=== PATIENT | male | born 1945 | race Caucasian/White ===

== ENCOUNTER 2016-08-31 10:03 | Outpatient (CLI) | payer MEDICARE, OTHER | END 2016-08-31 10:04 | disposition home or self-care (01) | DX: E11.9 Type 2 diabetes mellitus without complications (principal); I25.10 Atherosclerotic heart disease of native coronary artery without angina pectoris; N52.9 Male erectile dysfunction, unspecified; Z12.5 Encounter for screening for malignant neoplasm of prostate | CPT/HCPCS: 36415; 80053; 84403; 84439; 84443; 84481; G0103 ==

== ENCOUNTER 2016-09-15 09:09 | Outpatient (CLI) | payer MEDICARE, OTHER | END 2016-09-15 09:10 | disposition home or self-care (01) | DX: E29.1 Testicular hypofunction (principal); G47.30 Sleep apnea, unspecified; E11.40 Type 2 diabetes mellitus with diabetic neuropathy, unspecified; E78.5 Hyperlipidemia, unspecified; I10 Essential (primary) hypertension ==

== ENCOUNTER 2016-09-23 13:40 | Outpatient (CLI) | payer MEDICARE, OTHER | END 2016-09-23 13:41 | disposition home or self-care (01) | DX: I63.9 Cerebral infarction, unspecified (principal); D64.9 Anemia, unspecified ==

== ENCOUNTER 2016-11-05 08:00 | Outpatient (CLI) | payer MEDICARE, OTHER ==
[2016-11-05 19:08] LABS: HCT - HEMATOCRIT 40.5 % (42.0-52.0); HGB - HEMOGLOBIN 12.7 g/dL (14.0-18.0); MEAN CORPUSCULAR HEMOGLOBIN 24.9 pg (27.0-31.0); MEAN CORPUSCULAR HGB CONC 31.5 g/dL (32.0-36.0); MEAN CORPUSCULAR VOLUME 79.1 fL (80.0-94.0); RED BLOOD COUNT 5.12 10^6/uL (4.70-6.10); RED CELL DISTRIBUTION WIDTH 16.3 % (12.0-15.0); WHITE BLOOD COUNT 7.9 x10^3/uL (4.8-10.8)
[2016-11-05 20:22] LABS: HEMOGLOBIN A1C 0.98 g/dL
[2016-11-05 21:08] LABS: CREATININE 1.5 mg/dL (0.6-1.2); PHOSPHORUS 2.9 mg/dL (2.5-4.6); POTASSIUM 4.1 mmol/L (3.5-5.0); URIC ACID 5.4 mg/dL (2.6-7.2)
[2016-11-05 22:24] LABS: CALCIUM 8.9 mg/dL (8.5-10.3)
== END 2016-11-05 08:01 | disposition home or self-care (01) ==
LOC: LAB.WCP 08:00
PROVIDERS: ATTEND Internal Medicine Nephrology
DX: I12.9 Hypertensive chronic kidney disease with stage 1 through stage 4 chronic kidney disease, or unspecified chronic kidney disease (principal); N18.3 Chronic kidney disease, stage 3 (moderate); D63.1 Anemia in chronic kidney disease
CPT/HCPCS: 36415; 80069; 82043; 82306; 82570; 83036; 83540; 83970; 84466; 84550

== ENCOUNTER 2017-03-14 08:46 | Outpatient (CLI) | payer MEDICARE, OTHER | END 2017-03-14 08:47 | disposition home or self-care (01) | LOC: SC 08:46 | PROVIDERS: ATTEND Nurse Practitioner Family | DX: G47.33 Obstructive sleep apnea (adult) (pediatric) (principal) | CPT/HCPCS: 99214; G0463; 99212 ==

== ENCOUNTER 2017-04-01 14:17 | Outpatient (CLI) | payer MEDICARE, OTHER ==
[2017-04-01 19:21] LABS: HCT - HEMATOCRIT 40.5 % (42.0-52.0); HGB - HEMOGLOBIN 12.9 g/dL (14.0-18.0); MEAN CORPUSCULAR HEMOGLOBIN 24.9 pg (27.0-31.0); MEAN CORPUSCULAR HGB CONC 31.7 g/dL (32.0-36.0); MEAN CORPUSCULAR VOLUME 78.4 fL (80.0-94.0); MEAN PLATELET VOLUME 9.4 fL (7.4-11.4); RED BLOOD COUNT 5.17 10^6/uL (4.70-6.10); RED CELL DISTRIBUTION WIDTH 18.3 % (12.0-15.0); WHITE BLOOD COUNT 13.1 x10^3/uL (4.8-10.8)
[2017-04-01 19:43] LABS: HEMOGLOBIN A1C 0.8 g/dL
[2017-04-01 19:46] LABS: CALCIUM 9.2 mg/dL (8.5-10.3); CREATININE 1.5 mg/dL (0.6-1.2); PHOSPHORUS 3.1 mg/dL (2.5-4.6); POTASSIUM 4.1 mmol/L (3.5-5.0); URIC ACID 5.9 mg/dL (2.6-7.2)
== END 2017-04-01 14:18 | disposition home or self-care (01) ==
LOC: LAB.WCP 14:17
PROVIDERS: ATTEND Internal Medicine Nephrology
DX: I12.9 Hypertensive chronic kidney disease with stage 1 through stage 4 chronic kidney disease, or unspecified chronic kidney disease (principal); N18.3 Chronic kidney disease, stage 3 (moderate); E11.29 Type 2 diabetes mellitus with other diabetic kidney complication; R80.9 Proteinuria, unspecified; D63.1 Anemia in chronic kidney disease
CPT/HCPCS: 36415; 80069; 82043; 82570; 83036; 83540; 83970; 84466; 84550

== ENCOUNTER 2017-05-05 08:51 | Outpatient (CLI) | payer MEDICARE, OTHER | END 2017-05-05 08:52 | disposition home or self-care (01) | LOC: SC 08:51 | PROVIDERS: ATTEND Nurse Practitioner Family | DX: G47.31 Primary central sleep apnea (principal) | CPT/HCPCS: 99214; G0463; 99212 ==

== ENCOUNTER 2017-05-26 11:20 | Outpatient (CLI) | payer MEDICARE, OTHER ==
[2017-05-26 20:44] LABS: CHOL/HDL RATIO 3.2 (<5.0); CHOLESTEROL 122 mg/dL; HDL CHOLESTEROL 38 mg/dL; LDL/HDL RATIO 1.3 (<3.6); TRIGLYCERIDES 166 mg/dL; VLDL CHOLESTEROL 33 mg/dL
== END 2017-05-26 11:21 | disposition home or self-care (01) ==
LOC: LAB.WCP 11:20
PROVIDERS: ATTEND Internal Medicine Endocrinology, Diabetes & Metabolism
DX: E29.1 Testicular hypofunction (principal); E78.5 Hyperlipidemia, unspecified
CPT/HCPCS: 36415; 80061; 84403

== ENCOUNTER 2017-06-08 09:45 | Outpatient (CLI) | payer MEDICARE, OTHER | END 2017-06-08 09:46 | disposition home or self-care (01) | LOC: SC 09:45 | PROVIDERS: ATTEND Nurse Practitioner Family | DX: G47.33 Obstructive sleep apnea (adult) (pediatric) (principal) | CPT/HCPCS: 99214; G0463; 99212 ==

== ENCOUNTER 2017-06-29 08:00 | Outpatient (CLI) | payer MEDICARE, OTHER ==
[2017-06-29 19:33] LABS: HGB - HEMOGLOBIN 14.5 g/dL (14.0-18.0); MEAN CORPUSCULAR HEMOGLOBIN 26.8 pg (27.0-31.0); MEAN CORPUSCULAR HGB CONC 32.3 g/dL (32.0-36.0); RED BLOOD COUNT 5.42 10^6/uL (4.70-6.10); WHITE BLOOD COUNT 11.5 x10^3/uL (4.8-10.8)
[2017-06-29 19:43] LABS: ALBUMIN 3.8 g/dL (3.2-5.5); CALCIUM 8.6 mg/dL (8.5-10.3); CREATININE 1.7 mg/dL (0.6-1.2); PHOSPHORUS 3.2 mg/dL (2.5-4.6); URIC ACID 4.2 mg/dL (2.6-7.2)
[2017-06-29 20:11] LABS: HB2 TOTAL 15.7 g/dL; HEMOGLOBIN A1C 1.18 g/dL
[2017-06-29 20:24] LABS: MICROALBUM/CREATININE RATIO,UR 790.3 ug/mg (<30.0); MICROALBUMIN,URINE 114.6 mg/dL (0-300.0)
[2017-07-01 16:28] LABS: ALBUMIN 3.6 g/dL (3.8-4.8); ALPHA 1 GLOBULIN 0.3 g/dL (0.2-0.3); ALPHA 2 GLOBULIN 0.7 g/dL (0.5-0.9); BETA 1 GLOBULIN 0.4 g/dL (0.4-0.6); BETA 2 GLOBULIN 0.4 g/dL (0.2-0.5); GAMMA GLOBULIN 0.9 g/dL (0.8-1.7)
== END 2017-06-29 08:01 | disposition home or self-care (01) ==
LOC: LAB.WCP 08:00
PROVIDERS: ATTEND Internal Medicine Nephrology
DX: I12.9 Hypertensive chronic kidney disease with stage 1 through stage 4 chronic kidney disease, or unspecified chronic kidney disease (principal); N18.3 Chronic kidney disease, stage 3 (moderate); E11.29 Type 2 diabetes mellitus with other diabetic kidney complication; R80.9 Proteinuria, unspecified; D63.1 Anemia in chronic kidney disease; E11.40 Type 2 diabetes mellitus with diabetic neuropathy, unspecified; E78.5 Hyperlipidemia, unspecified
CPT/HCPCS: 36415; 80069; 82043; 82570; 83036; 83540; 83970; 84155; 84165; 84466; 84550

== ENCOUNTER 2017-07-14 10:17 | Outpatient (CLI) | payer MEDICARE, OTHER | END 2017-07-14 10:18 | disposition home or self-care (01) | LOC: SC 10:17 | PROVIDERS: ATTEND Nurse Practitioner Family | DX: G47.33 Obstructive sleep apnea (adult) (pediatric) (principal); G47.31 Primary central sleep apnea | CPT/HCPCS: 99214; G0463; 99212 ==

== ENCOUNTER 2017-10-17 08:00 | Outpatient (CLI) | payer MEDICARE, OTHER ==
[2017-10-17 13:20] LABS: HGB - HEMOGLOBIN 13.1 g/dL (14.0-18.0); MEAN CORPUSCULAR HEMOGLOBIN 27.1 pg (27.0-31.0); MEAN CORPUSCULAR HGB CONC 33.3 g/dL (32.0-36.0); MEAN CORPUSCULAR VOLUME 81.3 fL (80.0-94.0); MEAN PLATELET VOLUME 9.3 fL (7.4-11.4); RED BLOOD COUNT 4.83 10^6/uL (4.70-6.10); RED CELL DISTRIBUTION WIDTH 15.8 % (12.0-15.0); WHITE BLOOD COUNT 7.2 x10^3/uL (4.8-10.8)
[2017-10-17 13:36] LABS: ALBUMIN 3.4 g/dL (3.2-5.5); CALCIUM 8.9 mg/dL (8.5-10.3); CREATININE 1.4 mg/dL (0.6-1.2); PHOSPHORUS 2.7 mg/dL (2.5-4.6); URIC ACID 5.8 mg/dL (2.6-7.2)
== END 2017-10-17 23:59 ==
LOC: LAB.WCP 08:00
PROVIDERS: ATTEND Internal Medicine Nephrology
DX: N18.3 Chronic kidney disease, stage 3 (moderate) (principal); E11.22 Type 2 diabetes mellitus with diabetic chronic kidney disease; I12.9 Hypertensive chronic kidney disease with stage 1 through stage 4 chronic kidney disease, or unspecified chronic kidney disease; D63.1 Anemia in chronic kidney disease; R80.9 Proteinuria, unspecified
CPT/HCPCS: 36415; 80069; 82570; 83540; 83970; 84156; 84466; 84550

== ENCOUNTER 2018-01-02 13:50 | Outpatient (CLI) | payer MEDICARE, OTHER ==
[2018-01-02 18:58] LABS: ALBUMIN 3.6 g/dL (3.2-5.5); CALCIUM 9.4 mg/dL (8.5-10.3); CREATININE 1.7 mg/dL (0.6-1.2); PHOSPHORUS 4.1 mg/dL (2.5-4.6)
== END 2018-01-02 13:51 | disposition home or self-care (01) ==
LOC: LAB.WCP 13:50
PROVIDERS: ATTEND Internal Medicine Nephrology
DX: I12.9 Hypertensive chronic kidney disease with stage 1 through stage 4 chronic kidney disease, or unspecified chronic kidney disease (principal); N18.3 Chronic kidney disease, stage 3 (moderate); E11.22 Type 2 diabetes mellitus with diabetic chronic kidney disease; R80.9 Proteinuria, unspecified; N25.81 Secondary hyperparathyroidism of renal origin
CPT/HCPCS: 36415; 80069

== ENCOUNTER 2018-03-02 08:00 | Outpatient (CLI) | payer MEDICARE, OTHER ==
[2018-03-02 19:27] LABS: HGB - HEMOGLOBIN 13.3 g/dL (14.0-18.0); MEAN CORPUSCULAR HEMOGLOBIN 26.3 pg (27.0-31.0); MEAN CORPUSCULAR VOLUME 82.2 fL (80.0-94.0); MEAN PLATELET VOLUME 10.1 fL (7.4-11.4); RED BLOOD COUNT 5.05 10^6/uL (4.70-6.10); RED CELL DISTRIBUTION WIDTH 16.5 % (12.0-15.0); WHITE BLOOD COUNT 8.8 x10^3/uL (4.8-10.8)
[2018-03-02 20:08] LABS: ALBUMIN 3.6 g/dL (3.2-5.5); CALCIUM 9.1 mg/dL (8.5-10.3); CREATININE 2.2 mg/dL (0.6-1.2); PHOSPHORUS 3.4 mg/dL (2.5-4.6); URIC ACID 6.3 mg/dL (2.6-7.2)
[2018-03-02 20:16] LABS: CREATININE,URINE 129.7 mg/dL; MICROALBUM/CREATININE RATIO,UR 369.3 ug/mg (<30.0); MICROALBUMIN,URINE 47.9 mg/dL (0-300.0)
[2018-03-06 20:56] LABS: ALBUMIN 3.7 g/dL (3.8-4.8); ALPHA 1 GLOBULIN 0.3 g/dL (0.2-0.3); ALPHA 2 GLOBULIN 0.8 g/dL (0.5-0.9); BETA 1 GLOBULIN 0.5 g/dL (0.4-0.6); BETA 2 GLOBULIN 0.3 g/dL (0.2-0.5); GAMMA GLOBULIN 0.9 g/dL (0.8-1.7)
== END 2018-03-02 08:01 | disposition home or self-care (01) ==
LOC: LAB.WCP 08:00
PROVIDERS: ATTEND Internal Medicine Nephrology
DX: N18.3 Chronic kidney disease, stage 3 (moderate) (principal); E11.22 Type 2 diabetes mellitus with diabetic chronic kidney disease; I12.9 Hypertensive chronic kidney disease with stage 1 through stage 4 chronic kidney disease, or unspecified chronic kidney disease; R80.9 Proteinuria, unspecified; N25.81 Secondary hyperparathyroidism of renal origin
CPT/HCPCS: 36415; 80069; 82043; 82570; 83540; 83970; 84155; 84165; 84466; 84550; 85027

== ENCOUNTER 2018-03-02 20:53 | Outpatient (CLI) | payer MEDICARE, OTHER ==
--- NOTE | 2018-03-03 12:35 | XRAY Report ---
Reason: LEFT FOOT PAIN Procedure Date: 03/02/2018 Accession Number: [id number] / [id number] Procedure: XR - Foot 2 View LT CPT Code: FULL RESULT: EXAM: LEFT FOOT RADIOGRAPHY EXAM DATE: 03/02/2018 09:07 PM. CLINICAL HISTORY: LEFT FOOT PAIN. COMPARISON: None. TECHNIQUE: 2 Views. FINDINGS: Bones: No fractures or bone lesions. Joints: No subluxations. Soft Tissues: Vascular calcification present. No soft tissue swelling. IMPRESSION: Negative two-view left foot radiography. [facility]
== END 2018-03-02 20:54 | disposition home or self-care (01) ==
LOC: DI 20:53
PROVIDERS: ATTEND Family Medicine
DX: M79.672 Pain in left foot (principal); E11.22 Type 2 diabetes mellitus with diabetic chronic kidney disease; I12.9 Hypertensive chronic kidney disease with stage 1 through stage 4 chronic kidney disease, or unspecified chronic kidney disease; N18.3 Chronic kidney disease, stage 3 (moderate); R80.9 Proteinuria, unspecified; N25.81 Secondary hyperparathyroidism of renal origin
CPT/HCPCS: 36415; 80069; 82043; 82570; 83540; 83970; 84155; 84165; 84466; 84550; 85027

== ENCOUNTER 2018-05-13 09:04 | Outpatient (CLI) | payer MEDICARE, OTHER ==
--- NOTE | 2018-05-15 09:18 | MRI Report ---
Reason: ALLERGIC RHINITIS, FOOT PAIN, LEFT Procedure Date: 05/13/2018 Accession Number: [id number] / [id number] Procedure: MRI - Foot LT W/O CPT Code: FULL RESULT: EXAM: LEFT MIDFOOT MRI WITHOUT CONTRAST EXAM DATE: 05/13/2018 09:57 AM. CLINICAL HISTORY: Left foot pain around fifth metatarsophalangeal joint. COMPARISON: Left foot 2 views 03/02/2018. TECHNIQUE: Multiplanar, multisequence T1-weighted and fluid-sensitive sequences of the midfoot without contrast. Other: None. FINDINGS: Bones: No marrow edema. No visible fracture. Articular Cartilage: Mild thinning of the hyaline cartilage of the first MTPJ with osteophyte formation consistent with mild osteoarthritis. Ligaments: The visualized intertarsal, intermetatarsal, and tarsometatarsal ligaments are intact. This includes the Lisfranc ligament. The visualized collateral ligaments are intact. Tendons: The flexor and extensor tendons are unremarkable. Musculature: No edema or fatty atrophy. Other: No effusions. The visualized portion of the tarsal tunnel is unremarkable. No intermetatarsal bursitis. There is increased T2 signal over the medial aspect of the head of the first metatarsal. The findings are suggestive of a ganglion cyst associated with the first MTPJ. The differential diagnosis includes intermetatarsal bursitis which is considered less likely. No significant abnormality surrounding the fifth MTPJ. IMPRESSION: 1. No significant abnormality in the region of interest. 2. 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 The differential diagnosis includes intermetatarsal bursitis. [facility] MUSCULOSKELETAL RADIOLOGY SECTION
== END 2018-05-13 09:05 | disposition home or self-care (01) ==
LOC: DI 09:04
PROVIDERS: ATTEND Physician Assistant Medical
DX: M19.072 Primary osteoarthritis, left ankle and foot (principal)

== ENCOUNTER 2018-05-26 07:10 | Outpatient (CLI) | payer MEDICARE, OTHER ==
--- NOTE | 2018-05-26 21:29 | CT Report ---
Reason: CHRONIC SINUSITIS Procedure Date: 05/26/2018 Accession Number: [id number] / [id number] Procedure: CT - Sinuses CPT Code: FULL RESULT: EXAM: CT SINUS EXAM DATE: 05/26/2018 07:29 AM. HISTORY: CHRONIC SINUSITIS. COMPARISONS: None. TECHNIQUE: Routine multi-axial CT imaging performed through the sinuses. Iodinated IV contrast: None. Reconstructions: Multiplanar reformats. In accordance with CT protocol optimization, one or more of the following dose reduction techniques were utilized for this exam: automated exposure control, adjustment of mA and/or KV based on patient size, or use of iterative reconstructive technique. FINDINGS: RIGHT Frontal: Normal. Ethmoid: Normal. Maxillary: Normal. Sphenoid: Normal. Drainage Pathways: The frontal recess, ostiomeatal complex and sphenoethmoidal recess are patent and normal. LEFT Frontal: Normal. Ethmoid: Normal. Maxillary: Normal. Sphenoid: Normal. Drainage Pathways: The frontal recess, ostiomeatal complex and sphenoethmoidal recess are patent and normal. Nasal Cavity: Normal. No mass or significant anatomic abnormality evident. Osseous Structures: Unremarkable. Orbits: Unremarkable. Other: None. IMPRESSION: Normal Sinus CT. No sinusitis. [facility]
== END 2018-05-26 07:11 | disposition home or self-care (01) ==
LOC: DI 07:10
PROVIDERS: ATTEND Physician Assistant Medical
DX: J32.8 Other chronic sinusitis (principal); J30.9 Allergic rhinitis, unspecified
CPT/HCPCS: 70486

== ENCOUNTER 2018-08-24 08:00 | Outpatient (CLI) | payer MEDICARE, OTHER ==
[2018-08-24 18:57] LABS: BASOPHILS # (AUTO) 0.1 10^3/uL (0.0-0.1); BASOPHILS % (AUTO) 1.3 %; EOSINOPHILS # (AUTO) 0.3 10^3/uL (0.0-0.7); EOSINOPHILS % (AUTO) 3.1 %; HGB - HEMOGLOBIN 14.8 g/dL (14.0-18.0); LYMPHOCYTES # (AUTO) 2.1 10^3/uL (1.5-3.5); MEAN CORPUSCULAR HGB CONC 32.5 g/dL (32.0-36.0); MEAN CORPUSCULAR VOLUME 86.2 fL (80.0-94.0); MEAN PLATELET VOLUME 9.9 fL (7.4-11.4); MONOCYTES # (AUTO) 0.9 10^3/uL (0.0-1.0); MONOCYTES % (AUTO) 11.5 %; NEUTROPHILS # (AUTO) 4.7 10^3/uL (1.5-6.6); NEUTROPHILS % (AUTO) 58.1 %; PLT - PLATELET COUNT 189 10^3/uL (130-450); RED BLOOD COUNT 5.27 10^6/uL (4.70-6.10); RED CELL DISTRIBUTION WIDTH 18.1 % (12.0-15.0); WHITE BLOOD COUNT 8.2 x10^3/uL (4.8-10.8)
[2018-08-24 19:10] LABS: CALCIUM 9.3 mg/dL (8.5-10.3)
== END 2018-08-24 23:59 | disposition home or self-care (01) ==
LOC: LAB.WCP 08:00
PROVIDERS: ATTEND Physician Assistant Medical
DX: I10 Essential (primary) hypertension (principal); D64.9 Anemia, unspecified
CPT/HCPCS: 36415; 80048; 85025

== ENCOUNTER 2018-09-04 08:00 | Outpatient (CLI) | payer MEDICARE, OTHER ==
[2018-09-04 19:09] LABS: HGB - HEMOGLOBIN 14.6 g/dL (14.0-18.0); MEAN CORPUSCULAR HGB CONC 32.2 g/dL (32.0-36.0); MEAN CORPUSCULAR VOLUME 86.9 fL (80.0-94.0); MEAN PLATELET VOLUME 10.3 fL (7.4-11.4); RED BLOOD COUNT 5.22 10^6/uL (4.70-6.10); RED CELL DISTRIBUTION WIDTH 17.7 % (12.0-15.0); WHITE BLOOD COUNT 10.3 x10^3/uL (4.8-10.8)
[2018-09-04 19:52] LABS: ALBUMIN 3.7 g/dL (3.2-5.5); CALCIUM 9.2 mg/dL (8.5-10.3); PHOSPHORUS 3.4 mg/dL (2.5-4.6); URIC ACID 6.8 mg/dL (2.6-7.2)
[2018-09-04 19:53] LABS: CREATININE,URINE 130.4 mg/dL; MICROALBUM/CREATININE RATIO,UR 375.8 ug/mg (<30.0)
== END 2018-09-04 23:59 ==
LOC: LAB.WCP 08:00
PROVIDERS: ATTEND Internal Medicine Nephrology
DX: E11.22 Type 2 diabetes mellitus with diabetic chronic kidney disease (principal); I12.9 Hypertensive chronic kidney disease with stage 1 through stage 4 chronic kidney disease, or unspecified chronic kidney disease; N18.3 Chronic kidney disease, stage 3 (moderate); R80.9 Proteinuria, unspecified
CPT/HCPCS: 36415; 80069; 82043; 82306; 82570; 83540; 83970; 84466; 84550; 85027

== ENCOUNTER 2018-11-16 14:19 | Outpatient (CLI) | payer MEDICARE, OTHER ==
--- NOTE | 2018-11-16 15:40 | XRAY Report ---
Reason: HIP PAIN,LEFT Procedure Date: 11/16/2018 Accession Number: [id number] / [id number] Procedure: WCP - Hip w/Pelvis 2-3V LT CPT Code: FULL RESULT: EXAM: LEFT HIP RADIOGRAPHY EXAM DATE: 11/16/2018 02:25 PM. CLINICAL HISTORY: HIP PAIN, LEFT. COMPARISON: 04/29/2016 2:04 PM. TECHNIQUE: 2 views. FINDINGS: Bones: Redemonstration of lumbar hardware, incompletely evaluated. No fractures or bone lesion. Joints: Mild marginal osteophytosis of the left femoroacetabular joint. No dislocation. The hip joint space is mildly narrowed. Soft Tissues: There are mild vascular calcifications. IMPRESSION: Mild degenerative changes. [facility]
== END 2018-11-16 14:20 | disposition home or self-care (01) ==
LOC: DI.WCP 14:19
PROVIDERS: ATTEND Physician Assistant Medical
DX: M16.12 Unilateral primary osteoarthritis, left hip (principal)

== ENCOUNTER 2020-04-24 08:00 | Outpatient (CLI) | payer MEDICARE, OTHER ==
[2020-04-24 18:32] LABS: BASOPHILS # (AUTO) 0.1 10^3/uL (0.0-0.1); BASOPHILS % (AUTO) 1.1 %; EOSINOPHILS # (AUTO) 0.2 10^3/uL (0.0-0.7); EOSINOPHILS % (AUTO) 2.1 %; HGB - HEMOGLOBIN 16.5 g/dL (14.0-18.0); LYMPHOCYTES # (AUTO) 1.2 10^3/uL (1.5-3.5); LYMPHOCYTES % (AUTO) 14.1 %; MEAN CORPUSCULAR HEMOGLOBIN 29.7 pg (27.0-31.0); MEAN CORPUSCULAR HGB CONC 32.7 g/dL (32.0-36.0); MEAN CORPUSCULAR VOLUME 90.8 fL (80.0-94.0); MEAN PLATELET VOLUME 11.3 fL (7.4-11.4); MONOCYTES # (AUTO) 0.9 10^3/uL (0.0-1.0); MONOCYTES % (AUTO) 10.7 %; NEUTROPHILS % (AUTO) 71.2 %; PLT - PLATELET COUNT 238 10^3/uL (130-450); RED BLOOD COUNT 5.55 10^6/uL (4.70-6.10); RED CELL DISTRIBUTION WIDTH 13.2 % (12.0-15.0); WHITE BLOOD COUNT 8.4 x10^3/uL (4.8-10.8)
[2020-04-24 18:54] LABS: ALBUMIN 3.7 g/dL (3.2-5.5); ALBUMIN/GLOBULIN RATIO 1.2 (1.0-2.2); BILIRUBIN,TOTAL 0.7 mg/dL (0.2-1.0); CALCIUM 9.8 mg/dL (8.5-10.3); CREATININE 1.9 mg/dL (0.6-1.2); MAGNESIUM 1.9 mg/dL (1.7-2.8); TOTAL PROTEIN 6.7 g/dL (6.7-8.2)
[2020-04-24 19:36] LABS: CREATININE,URINE 63.3 mg/dL; MICROALBUM/CREATININE RATIO,UR 1579.8 ug/mg (<30.0)
[2020-04-24 19:57] LABS: HEMOGLOBIN A1c% 7.4 % (4.27-6.07)
== END 2020-04-24 08:01 | disposition home or self-care (01) ==
LOC: LAB.WCP 08:00
PROVIDERS: ATTEND Physician Assistant Medical
DX: E11.9 Type 2 diabetes mellitus without complications (principal); R25.2 Cramp and spasm; D64.9 Anemia, unspecified
CPT/HCPCS: 36415; 80053; 82043; 82570; 83036; 83735; 84443; 85025

== ENCOUNTER 2020-07-03 16:20 | Outpatient (CLI) | payer MEDICARE, OTHER ==
--- NOTE | 2020-07-03 15:43 | SLEEP CARE CONSULTATION ---
Information from patient questionnaire entered by Janelle Herrera. I have reviewed and concur with the information entered by Janelle Herrera. This document represents the service I personally performed and the decisions made by me, Fela Ott, RN, MSN, [employer]. History of Present Illness Service Date and Time: 07/03/2020 1500 Previous diagnosis: Severe, Obstructive Sleep Apnea-Hypopnea Syndrome, Central Sleep Apnea-Hypopnea Syndrome AHI: 41.5 (in 2014) Reason for follow up: annual (last seen 06/2017) Equipment type: CPAP Equipment obtained from: [employer] Mask style: Nasal Mask brand: Respironics Backup mask available: Yes (keep current mask when replaced) Last cushion change: a few months. Prior sleep studies: Yes Year and Where: 2014 - [facility]; 2004 in [place], [place]; 2007 in [place], [place] Type of Sleep Study: Polysomnography HPI additional information: Review of last visit note June 2017 reflected 100% compliance of CPAP use with average use of 6.8 hours with CPAP pressure of [id number] and residual AHIof 5.5. A chinstrap was ordered for oral venting and discussion of follow up for pressure adjustment if further problems. Use of humidity also addressed for oral dryness. CPAP Compliance Data - Data Reviewed with Patient Average duration of nightly device use: 4 hr 58 min Compliance rate %: 69.4 (180 days) Current pressure setting (cmH2O): 14-20 Humidity settin Heated hose settin Average residual AHI: 5.9 Central apnea: 0.9 Obstructive apnea: 3.2 Hypopnea: 1.8 Average large leak: 4 min 16 sec Subjective Patient concerns: reports: mask leak noise (mask dislodging affecting sleep), dry mouth, nose, throat (dry mouth relieved with restart of humidity). denies: aerophagia, mask discomfort, air blowing in eyes, condensation in mask/hose, nasal congestion, epistaxis Observed to snore while using device: No (sleeps alone ) Current pressure setting perceived as: too high (waking in middle of night) On therapy, patient: reports: sleeping better, awakening more refreshed, being more awake and alert during the day, more rested overall. denies: drowsiness while driving Initial [place] Sleepiness Scale score: 8 (in 2014) Allergies and Home Medications Known drug allergies: Yes (penicillin ) Home medication list reviewed: Yes (no changes) Review of Systems Review of systems same as previous: No (knee pain) Physical Exam Height: 5 ft 6 in Weight: 200 lb Body Mass Index: 32.3 BMI Classification: Obese Impression and Plan 1. Central and obstructive Sleep Apnea-Hypopnea Syndrome, severe, with fair treatment compliance and slight elevation of residual apnea apnea similar to previous visit and he was not able to tolerate pressure change at that time. . On CPAP therapy, the patient has better sleep quality and is more rested overall. His compliance fell due to ask dislodging in sleep. He is currently using a nasal mask and would like to try a full face mask. He has had oral venting in past and tried a chinstrap but that was not comfortable. A mask refitting will be ordered. He was informed to contact his DME before 30days if t he mask is not better so that it can be replaced. The patients pressure will be changed to autoCPAP 14-16 cmH20 For comfort of air pressure. Patient's 90% pressure range is [id number] but data reflects that it can frequently go as high as [id number] which could be when patient is waking to air pressure feeling too high. Patient advised to contact me if pressure change is uncomfortable so that it can be adjusted. Goals for apnea control discussed. I also reviewed rationale for annual follow up to ensure treatment effective and to update annual prescription. Patient encourage to continue use of humidifier to reduce oral dryness. It is hoped that with the above measures that his sleep length and compliance will improve thus improving benefit of treatment. Patient also counseled on the importance of losing weight to reduce apnea and health risks. Patient's apnea severity and rationale for treatment to reduce apnea, improve sleep quality and reduce cardiovascular and cerebrovascular events was reviewed. I also reviewed the benefit of consistent device use of CPAP for hypertension, cardiac disease. * * Change auto CPAP pressure to 13-16 cmH2O * mask refitting. * Notify me if snoring with mask or feeling that the pressure is too much or too little * Attempt to lose weight * Call this office if any problems using CPAP * Return for follow up in 2-3 months , or sooner if concerns arise Counseling Topics: Weight loss health impact Visit Type: Telehealth Phone ([facility]) Patient Location: Home Location of Provider: Home Patient agrees and consents to this telehealth visit type: Yes Patient agrees to have their insurance billed: Yes Time Spent with Patient (minutes): 14 w/ patient - 18 minutes review of past visit & chart prep/documentation Provider Statement: I spent 100% of the Telehealth Phone Call with the patient with greater than 50% spent counseling the patient and coordination of care.
--- OUTSIDE RECORDS SUMMARY | 2020-07-09 01:19 | EXTERNAL MEDICAL SUMMARY RPT | Continuity of Care Document ---
:1945 Demographics Phone Unavailable Preferred Language Sami Marital Status Unknown Taoist Affiliation Unknown Race Unknown Ethnic Group Unknown Author Organization [facility] Address [address] [place] [address] Phone Care Team Providers Name Role Phone PATiana Unavailable Unavailable Young Unavailable Unavailable [place] Unavailable Unavailable Charlene Unavailable Unavailable Problems date description facility 2013-09-08 22:[address] [facility] 2013-09-13 11:42 DIAB W RENAL MANIFEST, TYPE II OR [facility] UNSPEC TYPE, NOT UNCNTRLD 2013-09-13 11:42 HYPERLIPIDEMIA NEC/NOS 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 2014-03-19 16:25 DIAB W RENAL MANIFEST, TYPE II OR [facility] UNSPEC TYPE, NOT UNCNTRLD 2014-03-19 16:25 ANEMIA IN CHRONIC KIDNEY DISEASE [facility] 2014-03-19 16:25 HYPTNSV CHR KID DIS, BENIGN, W [facility] KD STAGE I-IV OR UNSP 2014-03-19 16:25 CHRONIC KIDNEY DISEASE, STAGE III [facility] (MODERATE) 2014-03-19 16:25 PROTEINURIA [facility] 2014-09-04 10:50 DIAB RADHA WO COMPL, TYPE II OR [facility] UNSPEC TYPE, NOT UNCNTRLD 2014-09-04 10:50 CORON ATHEROSCLER NOS TYPE VESSEL, [facility] CAHUILLA OR GRAFT 2014-09-04 10:50 OTH MALAISE FATIGUE [facility] 2014-09-04 10:50 SHORTNESS OF BREATH [facility] 2014-09-04 10:50 COUGH [facility] 2014-09-04 10:50 CHEST PAIN NOS [facility] [place] 2014-09-04 11:48 DIAB RADHA WO COMPL, TYPE II OR [facility] UNSPEC TYPE, NOT UNCNTRLD 2014-09-04 11:48 CORON ATHEROSCLER NOS TYPE VESSEL, [facility] CAHUILLA OR GRAFT 2014-09-04 11:48 OTH MALAISE FATIGUE [facility] 2014-09-04 11:48 SHORTNESS OF BREATH [facility] 2014-09-04 11:48 COUGH [facility] 2014-09-04 11:48 CHEST PAIN NOS [facility] 2014-12-05 12:35 SCREEN FOR VENERAL DIS [facility] 2014-12-11 10:50 OTH MED,LT,CURRENT USE [facility] 2014-12-30 10:17 OBSTRUCTIVE SLEEP APNEA (ADULT) [facility] (PEDIATRIC) 2015-01-08 09:05 BENIGN HYPERTENSION [facility] 2015-01-11 12:25 POSTINFLAM PULM FIBROSIS [facility] 2015-01-11 12:25 PULMONARY COLLAPSE [facility] [place] 2015-01-11 12:25 CHRONIC LIVER DIS NEC [facility] dical [place] 2015-01-11 12:25 OTH MED,LT,CURRENT USE [facility] ed[facility] [place] 2015-01-11 12:28 DIZZINESS AND GIDDINESS [facility] 2015-01-11 22:48 PRIMARY CENTRAL SLEEP APNEA [facility] Medical [place] 2015-01-11 22:48 PERIODIC LIMB MOVEMENT DISORDER [facility] 2015-02-05 10:51 DIAB RADHA WO COMPL, TYPE II OR [facility] UNSPEC TYPE, NOT UNCNTRLD 2015-02-05 10:51 CORONARY ATHEROSCLEROSIS OF [place] [facility] CORONARY VESSEL 2015-02-05 10:51 DIVERTICULOSIS COLON (W/O MENT OF [facility] HEMORRHAGE) 2015-02-05 10:51 LUMBAGO [facility] 2015-02-05 10:51 UNSPECIFIED SLEEP APNEA [facility] 2015-02-05 10:51 HX-PENICILLIN ALLERGY [facility] 2015-02-05 10:51 LONG-TERM (CURRENT) USE OF ASPIRIN [facility] 2015-02-05 10:51 LONG-TERM (CURRENT) USE OF INSULIN [facility] 2015-02-05 10:51 SCREEN MAL NEOP-COLON [facility] 2015-02-12 09:45 COUGH [facility] 2015-02-19 22:52 PRIMARY CENTRAL SLEEP APNEA [facility] 2015-02-19 22:52 PERIODIC LIMB MOVEMENT DISORDER [facility] 2015-03-24 10:52 PRIMARY CENTRAL SLEEP APNEA [facility] 2015-03-24 10:52 PERIODIC LIMB MOVEMENT DISORDER [facility] 2015-07-18 08:00 ANEMIA IN CHRONIC KIDNEY DISEASE [facility] 2015-07-18 08:00 TYPE 2 DIABETES MELLITUS [facility] DIABETIC KIDNEY COMPLICATION 2015-07-18 08:00 HYPERTENSIVE CHRONIC KIDNEY [facility] DISEASE W STG 1-4/UNSP CHR KDNY 2015-07-18 08:00 CHRONIC KIDNEY DISEASE, STAGE 3 [facility] (MODERATE) 2015-07-18 08:00 SECONDARY HYPERPARATHYROIDISM OF [facility] RENAL ORIGIN 2015-07-18 08:00 PROTEINURIA, UNSPECIFIED [facility] 2015-10-16 11:17 COUGH [facility] 2015-10-16 11:17 SHORTNESS OF BREATH [facility] 2015-10-16 11:17 OTHER NONSPECIFIC ABNORMAL FINDING [facility] OF LUNG FIELD 2015-10-30 15:40 ANEMIA IN CHRONIC KIDNEY DISEASE [facility] 2015-10-30 15:40 TYPE 2 DIABETES MELLITUS W [facility] DIABETIC KIDNEY COMPLICATION 2015-10-30 15:40 HYPERTENSIVE CHRONIC KIDNEY [facility] DISEASE W STG 1-4/UNSP CHR KDNY 2015-10-30 15:40 CHRONIC KIDNEY DISEASE, STAGE 3 [facility] (MODERATE) 2015-10-30 15:40 SECONDARY HYPERPARATHYROIDISM OF [facility] RENAL ORIGIN 2015-10-30 15:40 PROTEINURIA, UNSPECIFIED [facility] 2016-04-07 23:00 TYPE 2 DIABETES MELLITUS WITHOUT [facility] COMPLICATIONS 2016-04-07 23:00 ESSENTIAL (PRIMARY) HYPERTENSION [facility] 2016-04-07 23:00 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 2016-04-07 23:00 OLD [facility]OCARDIAL [facility] 2016-04-07 23:00 HEADACHE [facility] 2016-04-07 23:00 CLEANER SIGNS (CURRENT) USE OF INSULIN [facility] 2016-04-07 23:00 PRSNL HX OF TIA (TIA), 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 2016-08-31 10:03 TYPE 2 DIABETES MELLITUS WITHOUT [facility] COMPLICATIONS 2016-08-31 10:03 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 2016-08-31 10:03 MALE ERECTILE DYSFUNCTION, [facility] UNSPECIFIED 2016-08-31 10:03 ENCOUNTER FOR SCREENING FOR [facility] MALIGNANT NEOPLASM OF PROSTATE 2016-09-15 09:09 TYPE 2 DIABETES MELLITUS WITH [facility] DIABETIC NEUROPATHY, UNSP 2016-09-15 09:09 TESTICULAR HYPOFUNCTION [facility] 2016-09-15 09:09 HYPERLIPIDEMIA, UNSPECIFIED [facility] 2016-09-15 09:09 [facility] 2016-09-15 09:09 ESSENTIAL (PRIMARY) HYPERTENSION [facility] 2016-09-23 13:40 ANEMIA, UNSPECIFIED [facility] 2016-09-23 13:40 [facility]EREBRAL [facility] 2016-11-05 08:00 ANEMIA IN CHRONIC KIDNEY DISEASE [facility] 2016-11-05 08:00 HYPERTENSIVE CHRONIC KIDNEY [facility] DISEASE W STG 1-4/UNSP CHR KDNY 2016-11-05 08:00 CHRONIC KIDNEY DISEASE, STAGE 3 [facility] (MODERATE) 2017-03-14 08:46 OBSTRUCTIVE SLEEP APNEA (ADULT) [facility] (PEDIATRIC) 2017-04-01 14:17 ANEMIA IN CHRONIC KIDNEY DISEASE [facility] 2017-04-01 14:17 TYPE 2 DIABETES MELLITUS W [facility] DIABETIC KIDNEY COMPLICATION 2017-04-01 14:17 HYPERTENSIVE CHRONIC KIDNEY [facility] DISEASE W STG 1-4/UNSP CHR KDNY 2017-04-01 14:17 CHRONIC KIDNEY DISEASE, STAGE 3 [facility] (MODERATE) 2017-04-01 14:17 PROTEINURIA, UNSPECIFIED [facility] 2017-05-05 08:51 PRIMARY CENTRAL SLEEP APNEA [facility] 2017-05-26 11:20 TESTICULAR HYPOFUNCTION [facility] 2017-05-26 11:20 HYPERLIPIDEMIA, UNSPECIFIED [facility] 2017-06-08 09:45 OBSTRUCTIVE SLEEP APNEA (ADULT) [facility] (PEDIATRIC) 2017-06-29 08:00 ANEMIA IN CHRONIC KIDNEY DISEASE [facility] 2017-06-29 08:00 TYPE 2 DIABETES MELLITUS W [facility] DIABETIC KIDNEY COMPLICATION 2017-06-29 08:00 TYPE 2 DIABETES MELLITUS WITH [facility] DIABETIC NEUROPATHY, UNSP 2017-06-29 08:00 HYPERLIPIDEMIA, UNSPECIFIED [facility] 2017-06-29 08:00 HYPERTENSIVE CHRONIC KIDNEY [facility] DISEASE W STG 1-4/UNSP CHR KDNY 2017-06-29 08:00 CHRONIC KIDNEY DISEASE, STAGE 3 [facility] (MODERATE) 2017-06-29 08:00 PROTEINURIA, UNSPECIFIED [facility] 2017-07-14 10:17 PRIMARY CENTRAL SLEEP APNEA [facility] 2017-07-14 10:17 OBSTRUCTIVE SLEEP APNEA (ADULT) [facility] (PEDIATRIC) 2017-10-17 08:00 ANEMIA IN CHRONIC KIDNEY DISEASE [facility] 2017-10-17 08:00 TYPE 2 DIABETES MELLITUS W [facility] DIABETIC CHRONIC KIDNEY DISEASE 2017-10-17 08:00 HYPERTENSIVE CHRONIC KIDNEY [facility] DISEASE W STG 1-4/UNSP CHR KDNY 2017-10-17 08:00 CHRONIC KIDNEY DISEASE, STAGE 3 [facility] (MODERATE) 2017-10-17 08:00 PROTEINURIA, UNSPECIFIED [facility] 2018-01-02 13:50 TYPE 2 DIABETES MELLITUS W [facility] DIABETIC CHRONIC KIDNEY DISEASE 2018-01-02 13:50 HYPERTENSIVE CHRONIC KIDNEY [facility] DISEASE W STG 1-4/UNSP CHR KDNY 2018-01-02 13:50 CHRONIC KIDNEY DISEASE, STAGE 3 [facility] (MODERATE) 2018-01-02 13:50 SECONDARY HYPERPARATHYROIDISM OF [facility] RENAL ORIGIN 2018-01-02 13:50 PROTEINURIA, UNSPECIFIED [facility] 2018-03-02 08:00 TYPE 2 DIABETES MELLITUS W [facility] DIABETIC CHRONIC KIDNEY DISEASE 2018-03-02 08:00 HYPERTENSIVE CHRONIC KIDNEY [facility] DISEASE W STG 1-4/UNSP CHR KDNY 2018-03-02 08:00 CHRONIC KIDNEY DISEASE, STAGE 3 [facility] (MODERATE) 2018-03-02 08:00 SECONDARY HYPERPARATHYROIDISM OF [facility] RENAL ORIGIN 2018-03-02 08:00 PROTEINURIA, UNSPECIFIED [facility] 2018-03-02 20:53 TYPE 2 DIABETES MELLITUS W [facility] DIABETIC CHRONIC KIDNEY DISEASE 2018-03-02 20:53 HYPERTENSIVE CHRONIC KIDNEY [facility] DISEASE W STG 1-4/UNSP CHR KDNY 2018-03-02 20:53 PAIN IN LEFT FOOT [facility] 2018-03-02 20:53 CHRONIC KIDNEY DISEASE, STAGE 3 [facility] (MODERATE) 2018-03-02 20:53 SECONDARY HYPERPARATHYROIDISM OF [facility] RENAL ORIGIN 2018-03-02 20:53 PROTEINURIA, UNSPECIFIED [facility] 2018-05-13 09:04 PRIMARY OSTEOARTHRITIS, LEFT ANKLE [facility] AND FOOT 2018-05-26 07:10 ALLERGIC RHINITIS, UNSPECIFIED [facility] 2018-05-26 07:10 OTHER CHRONIC SINUSITIS [facility] 2018-08-24 08:00 ANEMIA, UNSPECIFIED [facility] 2018-08-24 08:00 ESSENTIAL (PRIMARY) HYPERTENSION [facility] 2018-09-04 08:00 TYPE 2 DIABETES MELLITUS W [facility] DIABETIC CHRONIC KIDNEY DISEASE 2018-09-04 08:00 HYPERTENSIVE CHRONIC KIDNEY [facility] DISEASE W STG 1-4/UNSP CHR KDNY 2018-09-04 08:00 CHRONIC KIDNEY DISEASE, STAGE 3 [facility] (MODERATE) 2018-09-04 08:00 PROTEINURIA, UNSPECIFIED [facility] 2018-11-16 14:19 UNILATERAL PRIMARY OSTEOARTHRITIS, [facility] LEFT HIP 2020-04-24 00:00 TYPE 2 DIABETES MELLITUS WITHOUT [facility] COMPLICATIONS 2020-04-24 00:00:00 MICROALBUMIN/CREAT RATIO [facility] [place] [facility] 2020-04-24 00:00:00 TSH WITH REFLEX TO FT4 [facility] [place] [facility] 2020-04-24 00:00:00 Cramp of limb [facility] chiquis Care [place] [facility] 2020-04-24 00:00:00 COMPREHENSIVE METABOLIC PANEL [facility] Primary [facility] 2020-04-24 00:00:00 HGBA1C [facility] [place] [facility] 2020-04-24 00:00:00 Magnesium (Mg) [facility] [place] [facility] 2020-04-24 00:00:00 CBC W/Diff/Plt [facility] [place] [facility] 2020-04-24 00:00:00 Cramp and spasm [facility] [place] [facility] 2020-04-24 00:00:00 Alcohol intake [facility] [place] [facility] 2020-04-24 00:00:00 Health-related behavior [facility] [place] [facility] 2020-04-24 00:00:00 [facility] and [facility] [place] [facility] 2020-04-24 00:00:[facility] [place] [facility] 2020-04-24 00:00:00 [facility]oker [facility] [place] [facility] 2020-04-24 00:00:00 [facility]amp [facility] [place] [facility] 2020-04-24 00:00:00 Alcohol [facility] [place] [facility] 2020-04-24 00:00:00 Tobacco smoking status NVIS [facility] [place] [facility] 2020-04-24 08:00 ANEMIA, UNSPECIFIED [facility] 2020-04-24 08:00 TYPE 2 DIABETES MELLITUS WITHOUT [facility] COMPLICATIONS 2020-04-24 08:00 CRAMP AND SPASM [facility] 2020-04-29 00:00:00 Unspecified disorder of kidney and Wh [facility] ureter [place] [facility] 2020-04-29 00:00:00 Disorder of kidney and ureter, [facility] unspecified [place] [facility] 2020-04-29 00:00:00 Kidney disease [facility] [place] [facility] Allergies date description facility NO KNOWN ENVIRONMENTAL ALLERGIES [facility] NO ALLERGY INFORMATION AVAILABLE [facility] PENICILLINS [facility] NO KNOWN ALLERGIES [facility] RAGWEED POLLEN [facility] DICLOFENAC [facility] JUNIPER [facility] MOXIFLOXACIN [facility] AMOXICILLIN-POT CLAVULANATE [facility] SULFAMETHOXAZOLE-TRIMETHOPRIM [facility] Penicillins [facility] NO KNOWN ALLERGIES [facility] PENICILLINS [facility] NO KNOWN ALLERGIES [facility] CODEINE [facility] DICLOFENAC [facility] MOXIFLOXACIN [facility] Penicillins [facility] NO KNOWN ALLERGIES [facility] Penicillins [facility] Penicillins [facility] Medications date description facility 2020-04-24 00:00:00 null [facility] [place] [facility] 2020-04-24 00:00:00 null [facility] [place] [facility] Procedures date description facility 2020-04-24 00:00:00 MICROALBUMIN/CREAT RATIO [facility] [place] [facility] date description facility 2020-04-24 00:00:00 TSH WITH REFLEX TO FT4 [facility] [place] [facility] date description facility 2020-04-24 00:00:00 COMPREHENSIVE METABOLIC PANEL [facility] [place] [facility] date description facility 2020-04-24 00:00:00 HGBA1C [facility] [place] [facility] date description facility 2020-04-24 00:00:00 Magnesium (Mg) [facility] [place] [facility] date description facility 2020-04-24 00:00:00 CBC W/Diff/Plt [facility] [place] [facility] date description facility 2020-04-24 00:00:00 Flulaval Quadrivalent [facility] P rimary Care Intramuscular Suspension [place] [facility] Prefilled Syringe 0.5 ML date description facility 2020-04-24 00:00:00 Administration of Influenza [facility] Virus Vaccine [place] [facility] date description facility 2020-04-24 00:00:00 [facility] [place] [facility] Results Social History date description facility 2020-04-24 00:00:00 Never smoker [facility] [place] [facility] Social History date description facility 2020-04-24 00:00:00 Never smoker [facility] [place] [facility] date description facility [id number]
== END 2020-07-03 16:21 | disposition home or self-care (01) ==
LOC: SC 16:20
PROVIDERS: ATTEND Nurse Practitioner Family
DX: G47.33 Obstructive sleep apnea (adult) (pediatric) (principal); G47.31 Primary central sleep apnea; E66.9 Obesity, unspecified; Z68.32 Body mass index [BMI] 32.0-32.9, adult

== ENCOUNTER 2020-08-06 09:58 | Outpatient (CLI) | payer MEDICARE, OTHER ==
--- NOTE | 2020-08-06 12:10 | XRAY Report ---
PROCEDURE: Knee 3 View RT INDICATIONS: R KNEE PX TECHNIQUE: 3 views of the right knee(s) were acquired. COMPARISON: None. FINDINGS: Bones status post total knee arthroplasty. No abnormal lucency surrounding the hardware to indicate l oosening. No evidence of acute complicating hardware feature. Soft tissues: No joint effusion. No suspicious soft tissue calcifications. IMPRESSION: Status post right total knee arthroplasty no evidence of an acute complicating hardware feature. Reviewed by: Max Mariscal MD on 08/06/2020 11:08 AM [facility] Approved by: Max Mariscal MD on 08/06/2020 11:08 AM [facility] Station ID: [id number]
== END 2020-08-06 09:59 | disposition home or self-care (01) ==
LOC: DI.N 09:58
PROVIDERS: ATTEND Physician Assistant Medical
DX: M25.561 Pain in right knee (principal); Z96.651 Presence of right artificial knee joint

== ENCOUNTER 2020-08-28 15:03 | Outpatient (CLI) | payer MEDICARE, OTHER ==
--- NOTE | 2020-08-28 15:33 | SLEEP CARE CONSULTATION ---
Information from patient questionnaire entered by Dina Guaman. I have reviewed and concur with the information entered by Dina Guaman. This document represents the service I personally performed and the decisions made by me, Dayana Paul ARNP. History of Present Illness Service Date and Time: 08/28/2020 1500 Previous diagnosis: Severe, Obstructive Sleep Apnea-Hypopnea Syndrome, Central Sleep Apnea-Hypopnea Syndrome AHI: 41.5 (in 2014) Reason for follow up: other (two month) Equipment type: CPAP Equipment obtained from: [facility] (getting supplies as needed) Mask style: Nasal Backup mask available: Yes (old mask) Last cushion change: 1 month Prior sleep studies: Yes Year and Where: [facility] - [facility]; 2004 in [place], [place]; 2007 in [place], [place] Type of Sleep Study: Polysomnography HPI additional information: MONSTER OSULLIVAN was diagnosed to have severe, AHI 41.5, obstructive sleep apnea- hypopnea syndrome and returns via Telehealth visit today for CPAP therapy two month pressure change follow-up. CPAP Compliance Data - Data Reviewed with Patient Average duration of nightly device use: 6 h 5 min Compliance rate %: 85 Current pressure setting (cmH2O): 13-16 Heated hose settin Average residual AHI: 3.1 Average large leak: 25 min 37 sec Compliance data discussion: Tried a full mask but it was so noisy and put pressure on his face that he could not tolerate it. He has gone back to his nasal cushion mask. He did have the fitting as ordered. He sent a text with a photo of the mask and headgear to the [employer] for a mask that may work for him but hasn't heard back from her in last month (Gilda). Subjective Patient concerns: reports: mask discomfort, mask leak noise (better with changed the headgear and it is fitting better). denies: aerophagia, air blowing in eyes, condensation in mask/hose, nasal congestion, dry mouth, nose, throat, epistaxis, other Observed to snore while using device: No Current pressure setting perceived as: too low On therapy, patient: reports: sleeping better, awakening more refreshed, being more awake and alert during the day, more rested overall. denies: drowsiness while driving Initial [place] Sleepiness Scale score: 8 (in 2015) Current [place] Sleepiness Scale score: 6 Allergies and Home Medications Home medication list reviewed: Yes (no changes) Review of Systems Review of systems same as previous: Yes (no changes) Physical Exam Vital signs obtained and entered by: Telehealth visit to reduce exposure during Covid pandemic Height: 5 ft 6 in Impression and Plan 1. Obstructive Sleep Apnea-Hypopnea Syndrome, severe, with good treatment compliance and good apnea control. On CPAP therapy, the patient has better sleep quality and is more rested overall. He feels his pressure is too low and would like it increased. I will adjust his pressure to 14-18 cmH2O for patient comfort and follow up with him in 1-2 months. He has been having mask issues but has found a better headgear setup with the nasal mask that has reduced air leaks and is comfortable. He was unable to tolerate the full face mask that they fitted him to after his last appointment. He would like to return to the nasal cushion mask with the new 2 strap headgear. He was advised to retext or contact the DME supplier to resolve the mask issue and he voiced understanding. Patient's apnea severity and rationale for treatment to reduce apnea, improve sleep quality and reduce cardiovascular and cerebrovascular events was reviewed. I also reviewed the benefit of consistent device use of CPAP for hypertension and cardiac disease. * Change auto CPAP pressure to 14-18 cmH2O * Change back to nasal mask with different headgear * Notify me if snoring with mask or feeling that the pressure is too much or too little * Call this office if any problems using CPAP * Return for follow up in 1 year, or sooner if concerns arise Counseling Topics: Spare mask Visit Type: Telehealth Phone Video Type: BETHee Patient Location: Home Location of Provider: Office Patient agrees and consents to this telehealth visit type: Yes Patient agrees to have their insurance billed: Yes Time Spent with Patient (minutes): 24 Provider Statement: I spent 100% of the Telehealth Phone Call with the patient with greater than 50% spent counseling the patient and coordination of care.
== END 2020-08-28 15:04 | disposition home or self-care (01) ==
LOC: SC 15:03
PROVIDERS: ATTEND Nurse Practitioner Family
DX: G47.33 Obstructive sleep apnea (adult) (pediatric) (principal)

== ENCOUNTER 2020-09-25 15:16 | Outpatient (CLI) | payer MEDICARE, OTHER ==
--- NOTE | 2020-09-25 15:21 | SLEEP CARE CONSULTATION ---
Information from patient questionnaire entered by Dina Guaman. I have reviewed and concur with the information entered by Dina Guaman. This document represents the service I personally performed and the decisions made by me, Dayana Paul ARNP. History of Present Illness Service Date and Time: 09/25/2020 1500 Previous diagnosis: Severe, Obstructive Sleep Apnea-Hypopnea Syndrome, Central Sleep Apnea-Hypopnea Syndrome AHI: 41.5 (in 2014) Reason for follow up: one month (followup - pressure change) Equipment type: CPAP Equipment obtained from: [employer] (getting supplies as needed) Mask style: Nasal (over the nose) Backup mask available: Yes (other mask) Last cushion change: 1 month Prior sleep studies: Yes Year and Where: 2014 - [facility]; 2004 in [place], [place]; 2007 in [place], [place] HPI additional information: MONSTER OSULLIVAN was diagnosed to have severe, AHI 41.5, obstructive/central sleep apnea-hypopnea syndrome and returns via Telehealth visit today for CPAP therapy one month pressure change follow-up. CPAP Compliance Data - Data Reviewed with Patient Average duration of nightly device use: 5 h 15 min Compliance rate %: 76.7 Current pressure setting (cmH2O): 13-16 Heated hose settin Average residual AHI: 1.5 Average large leak: 10 sec Subjective Patient concerns: denies: aerophagia, mask discomfort, air blowing in eyes, mask leak noise, condensation in mask/hose, nasal congestion, dry mouth, nose, throat, epistaxis, other Observed to snore while using device: No Current pressure setting perceived as: comfortable On therapy, patient: reports: sleeping better, awakening more refreshed, being more awake and alert during the day, more rested overall. denies: drowsiness while driving Initial [place] Sleepiness Scale score: 8 (in 2014) Current [place] Sleepiness Scale score: 4 Allergies and Home Medications Home medication list reviewed: Yes (no changes) Review of Systems Review of systems same as previous: Yes (no changes) Physical Exam Vital signs obtained and entered by: Telehealth visit to reduce exposure during Covid pandemic Height: 5 ft 6 in Impression and Plan 1. Obstructive Sleep Apnea-Hypopnea Syndrome, severe, with fair treatment compliance and good apnea control. On CPAP therapy, the patient has better sleep quality and is more rested overall. He has had less issues since changing to a nasal mask (over the nose). He gets less leak noises and air leaking. He states it is more comfortable and he is sleeping better now. He likes the pressure where it is currently. I did write to increase his pressure last time but the pressure was not changed. I will not change pressure today since he has significant apnea improvement and the pressure is comfortable for the patient. He agreed with plan of care. Patient's apnea severity and rationale for treatment to reduce apnea, improve sleep quality and reduce cardiovascular and cerebrovascular events was reviewed. I also reviewed the benefit of consistent device use of CPAP for hypertension and cardiac disease. * Continue autoCPAP pressure at 13-16 cmH2O * Notify me if snoring with mask or feeling that the pressure is too much or too little * Attempt to lose weight * Call this office if any problems using CPAP * Return for follow up in 1 year, or sooner if concerns arise Counseling Topics: Spare mask, Weight loss health impact Visit Type: Telehealth Phone Video Type: VSee Patient Location: Home Location of Provider: Office Patient agrees and consents to this telehealth visit type: Yes Patient agrees to have their insurance billed: Yes Time Spent with Patient (minutes): 11 Provider Statement: I spent 100% of the Telehealth Phone Call with the patient with greater than 50% spent counseling the patient and coordination of care.
== END 2020-09-25 15:17 | disposition home or self-care (01) ==
LOC: SC 15:16
PROVIDERS: ATTEND Nurse Practitioner Family
DX: G47.33 Obstructive sleep apnea (adult) (pediatric) (principal)

== ENCOUNTER 2020-12-11 09:04 | Outpatient (CLI) | payer MEDICARE, OTHER ==
--- NOTE | 2020-12-11 16:40 | Nuclear Medicine Report ---
PROCEDURE: Bone 3-Phase INDICATIONS: RIGHT KNEE PAIN RADIOPHARMACEUTICAL: 27.0 mCi Tc-99m MDP IV. TECHNIQUE: Multiple bone scintigrams were obtained after intravenous injection of Tc-99m MDP, including flow, bl ood pool, and delayed images centered to the region of interest. COMPARISON: X-ray of the right knee, 3 views, 08/06/2020. FINDINGS: Right knee arthroplasty is present. A triple phase bone scan was obtained including flow, blood pool and delayed images centered to the knees. Flow and blood pool images demonstrates subtle i ncreased vascular activity around the right knee. Delayed images demonstrate increased activity aroun d knee prosthesis at the prosthesis and bone interface. Mildly increased uptake in the left knee date d images is compatible with degenerative joint disease. IMPRESSION: There is subtle increased vascularity around right knee and increased delayed uptake on bone scan around the right knee prosthesis. The radiographic finding could represent early prosthesis loosening or infection. Recommend clinical correlation. Reviewed by: Riley Magallon MD on 12/11/2020 4:38 PM PDT Approved by: Riley Magallon MD on 12/11/2020 4:38 PM PDT Station ID: [id number]
== END 2020-12-11 09:05 | disposition home or self-care (01) ==
LOC: DI 09:04
PROVIDERS: ATTEND Physician Assistant Medical
DX: R93.6 Abnormal findings on diagnostic imaging of limbs (principal)
CPT/HCPCS: 78315

== ENCOUNTER 2021-01-23 08:00 | Outpatient (CLI) | payer MEDICARE, OTHER ==
[2021-01-23 18:04] LABS: THYROID STIMULATING HORMONE 2.2 uIU/mL (0.34-5.60)
[2021-01-23 18:15] LABS: FOLATE 11.59 ng/mL (5.90 - >24.8)
== END 2021-01-23 23:59 | disposition home or self-care (01) ==
LOC: LAB.WCP 08:00
PROVIDERS: ATTEND Specialist
DX: G62.9 Polyneuropathy, unspecified (principal); L65.9 Nonscarring hair loss, unspecified
CPT/HCPCS: 36415; 81599; 82607; 82746; 84155; 84165; 84443

== ENCOUNTER 2021-03-09 09:46 | Outpatient (CLI) | payer MEDICARE, OTHER ==
[2021-03-09 11:58] LABS: BASOPHILS # (AUTO) 0.1 10^3/uL (0.0-0.1); BASOPHILS % (AUTO) 1.2 %; EOSINOPHILS # (AUTO) 0.3 10^3/uL (0.0-0.7); HCT - HEMATOCRIT 46.8 % (42.0-52.0); LYMPHOCYTES # (AUTO) 1.5 10^3/uL (1.5-3.5); MEAN CORPUSCULAR HEMOGLOBIN 29.1 pg (27.0-31.0); MEAN CORPUSCULAR HGB CONC 32.1 g/dL (32.0-36.0); MEAN CORPUSCULAR VOLUME 90.9 fL (80.0-94.0); MEAN PLATELET VOLUME 11.2 fL (7.4-11.4); MONOCYTES # (AUTO) 0.9 10^3/uL (0.0-1.0); MONOCYTES % (AUTO) 11.2 %; NEUTROPHILS # (AUTO) 5.5 10^3/uL (1.5-6.6); PLT - PLATELET COUNT 254 10^3/uL (130-450); RED BLOOD COUNT 5.15 10^6/uL (4.70-6.10); RED CELL DISTRIBUTION WIDTH 13.3 % (12.0-15.0); WHITE BLOOD COUNT 8.4 x10^3/uL (4.8-10.8)
[2021-03-09 12:22] LABS: ALBUMIN 3.4 g/dL (3.2-5.5); ALBUMIN/GLOBULIN RATIO 1.1 (1.0-2.2); ALKALINE PHOSPHATASE 74 IU/L (42-121); ALT ALANINE AMINOTRANSFERASE 30 IU/L (10-60); AST ASPARTATE AMINOTRANSFERASE 24 IU/L (10-42); BILIRUBIN,TOTAL 0.7 mg/dL (0.2-1.0); BUN - BLOOD UREA NITROGEN 31 mg/dL (6-20); CALCIUM 8.9 mg/dL (8.5-10.3); CARBON DIOXIDE - CO2 21 mmol/L (21-32); CHLORIDE 108 mmol/L (101-111); CHOL/HDL RATIO 7.2 (<5.0); CHOLESTEROL 259 mg/dL; CREATININE 1.8 mg/dL (0.6-1.2); GFR - MDRD 37 (>89); GLUCOSE 74 mg/dL (70-100); HDL CHOLESTEROL 36 mg/dL; LDL CHOLESTEROL,CALCULATED 150 mg/dL; LDL/HDL RATIO 4.2 (<3.6); POTASSIUM 4.1 mmol/L (3.5-5.0); SODIUM 140 mmol/L (135-145); THYROID STIMULATING HORMONE 2.66 uIU/mL (0.34-5.60); TOTAL PROTEIN 6.4 g/dL (6.7-8.2); TRIGLYCERIDES 364 mg/dL; VLDL CHOLESTEROL 73 mg/dL
[2021-03-09 12:40] LABS: ESTIMATED AVERAGE GLUCOSE 180 mg/dL (70-100); HEMOGLOBIN A1c% 7.9 % (4.27-6.07)
== END 2021-03-09 23:59 | disposition home or self-care (01) ==
LOC: LAB.WCP 09:46
PROVIDERS: ATTEND Physician Assistant Medical
DX: E11.9 Type 2 diabetes mellitus without complications (principal); I25.10 Atherosclerotic heart disease of native coronary artery without angina pectoris; I48.91 Unspecified atrial fibrillation; D64.9 Anemia, unspecified
CPT/HCPCS: 36415; 80053; 80061; 83036; 83721; 84443; 85025

== ENCOUNTER 2021-05-06 23:02 | Outpatient (CLI) | payer MEDICARE, OTHER | END 2021-05-06 23:03 | disposition EMS.NT | LOC: EMS 23:02 | DX: R07.9 Chest pain, unspecified (principal) ==

== ENCOUNTER 2021-05-06 23:47 | Emergency (ER) | payer MEDICARE, OTHER ==
--- NOTE | 2021-05-06 23:54 | ED Physician Documentation ---
PD HPI CHEST PAIN - Stated complaint Stated Complaint: CHEST PX - History obtained from History obtained from: Patient - History of Present Illness Timing - onset: Enter time (22:00), Today Timing - onset during: Rest Timing - details: Abrupt onset Pain level max: 4 Pain level now: 0 Quality: Pain Radiation: Other (chest, ears) Improved by: Nothing Worsened by: Other (no exacerbating factors) Associated symptoms: Shortness of air, Nausea. No: Diaphoresis, Vomiting, Feeling faint / dizzy, General Weakness, Palpitations, Cough Similar symptoms before: Has not had sx before Recently seen: Not recently seen - Additional information Additional information: at approximately 10 PM tonight while at home at rest (watching TV), sudden onset posterior neck pain and anterior neck burning sensation, subsequently moved down to chest and radiated to both ears. He had mild dyspnea and nausea without vomiting. Symptoms resolved prior to arrival. Patient has h/o NC approximately 20 years ago although he says no intervention until about 8 years later when he had chemical stress test as part of clearance for knee surgery. Based on the results of the stress test, he had coronary artery stent placed. 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 denies: Palpitations Respiratory: reports: Dyspnea (resolved). denies: Cough GI: reports: Nausea. denies: Abdominal Pain, Vomiting PD PAST MEDICAL HISTORY - Past Medical History Cardiovascular: Hypertension, Coronary artery disease, NC Respiratory: Sleep apnea, CPAP use, Other Neuro: CVA Endocrine/Autoimmune: Type 2 diabetes GI: None : Other HEENT: Other Psych: Depression Musculoskeletal: Osteoarthritis, Chronic back pain Derm: None - Past Surgical History Past Surgical History: Yes Ortho: Knee replacement, Arthroscopic surgery, Other Cardiovascular: Cardiac catheterization HEENT: Cataracts, Tonsil/Adenoidectomy - Present Medications Home Medications: Ambulatory Orders Medication Instructions Recorded Confirmed Losartan [Cozaar] 50 mg PO BID 09/08/13 05/07/21 Atorvastatin Calcium 80 tab PO DAILY 02/05/15 05/07/21 Aspirin 325 mg PO DAILY 04/08/16 05/07/21 Diclofenac Sodium [Voltaren] 100 gm TP PRN PRN 05/15/18 05/07/21 Insulin Aspart [NovoLOG] 0 - 12 units SQ QID 05/15/18 05/07/21 Insulin Glargine,Hum.rec.anlog 40 units SQ QPM 05/15/18 05/07/21 [Basaglar Gurjitikpen U-100] amLODIPine [Norvasc] 5 mg PO BID 05/07/21 05/07/21 carvediloL [Coreg] 1 tab PO TID 05/07/21 05/07/21 hydrALAZINE [Apresoline] 10 mg PO BID 05/07/21 05/07/21 - Allergies Allergies/Adverse Reactions: Allergies Allergy/AdvReac Type Severity Reaction Status Date / Time Penicillins Allergy Severe Anaphylaxis Verified 05/07/21 00:17 - Social History Does the pt smoke?: No Smoking Status: Never smoker Does the pt drink ETOH?: Yes - Immunizations Immunizations are current?: Yes PD ED PE NORMAL - Vitals Vital signs reviewed: Yes - General General: Alert and oriented X 3, No acute distress, Well developed/nourished - Cardiac Cardiac: RRR, No murmur, No gallop, No rub - Respiratory Respiratory: No respiratory distress, Clear bilaterally - Abdomen Abdomen: Soft, Non tender PD ED PE EXPANDED - Extremities Extremities: Pedal edema bilateral (mild) Results - Vitals Vitals: Oxygen O2 Source Room air - EKG (time done) No standard instances Rate: Rate (enter#) (81) Rhythm: NSR [place]: LAD, Anterior hemiblock QRS: LVH Ischemia: Q waves (V1, V2) - Labs Labs: Laboratory Tests 05/07/21 05/07/21 05/07/21 00:10 00:50 00:50 WBC 10.7 RBC 4.95 Hgb 14.6 Hct 44.5 MCV 89.9 MCH 29.5 MCHC 32.8 RDW 13.3 Plt Count 245 MPV 10.6 Neut # (Auto) 7.9 H Lymph # (Auto) 1.4 L [place] # (Auto) 1.0 Eos # (Auto) 0.3 Baso # (Auto) 0.1 Absolute Nucleated RBC 0.00 Nucleated RBC % 0.0 Sodium 137 Potassium 4.0 Chloride 107 Carbon Dioxide 16 L Anion Gap 14.0 H BUN 49 H Creatinine 2.4 H Estimated GFR (MDRD) 27 L Glucose 201 H Calcium 8.7 Total Bilirubin 0.7 AST 19 ALT 26 Alkaline Phosphatase 70 Troponin I High Sens 16.6 Total Protein 6.0 L Albumin 3.4 Globulin 2.6 Albumin/Globulin Ratio 1.3 Lipase 47 - Rads (name of study) chest xray Radiology: Prelim report reviewed, See rad report PD MEDICAL DECISION MAKING - ED course Complexity details: reviewed results, re-evaluated patient, considered differential, d/w patient Departure - Departure Disposition: 01 Home, Self Care Clinical Impression: Chest pain Condition: Good Instructions: ED Chest Pain Atypical Unkn Cause Comments: 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 Discharge Date/Time: 05/07/21 02:03
--- NOTE | 2021-05-07 00:38 | XRAY Report ---
PROCEDURE: Chest 1 View X-Ray INDICATIONS: Chest pain TECHNIQUE: One view of the chest was acquired. COMPARISON: None FINDINGS: Surgical changes and devices: None. Lungs and pleura: No pleural effusions or pneumothorax. Lungs are clear. Mediastinum: Mediastinal contours appear normal. Heart size is normal. Bones and chest wall: No suspicious bony lesions. Overlying soft tissues appear unremarkable. IMPRESSION: No evidence acute pulmonary process. Reviewed by: Juan M Franks MD on 05/07/2021 12:37 AM [facility] Approved by: Juan M Franks MD on 05/07/2021 12:37 AM [facility] Station ID: [id number]
[2021-05-07 00:55] LABS: BASOPHILS # (AUTO) 0.1 10^3/uL (0.0-0.1); BASOPHILS % (AUTO) 0.9 %; EOSINOPHILS # (AUTO) 0.3 10^3/uL (0.0-0.7); EOSINOPHILS % (AUTO) 2.5 %; HCT - HEMATOCRIT 44.5 % (42.0-52.0); HGB - HEMOGLOBIN 14.6 g/dL (14.0-18.0); LYMPHOCYTES # (AUTO) 1.4 10^3/uL (1.5-3.5); LYMPHOCYTES % (AUTO) 12.9 %; MEAN CORPUSCULAR HEMOGLOBIN 29.5 pg (27.0-31.0); MEAN CORPUSCULAR HGB CONC 32.8 g/dL (32.0-36.0); MEAN CORPUSCULAR VOLUME 89.9 fL (80.0-94.0); MEAN PLATELET VOLUME 10.6 fL (7.4-11.4); MONOCYTES % (AUTO) 9.6 %; NEUTROPHILS # (AUTO) 7.9 10^3/uL (1.5-6.6); NEUTROPHILS % (AUTO) 73.6 %; PLT - PLATELET COUNT 245 10^3/uL (130-450); RED BLOOD COUNT 4.95 10^6/uL (4.70-6.10); RED CELL DISTRIBUTION WIDTH 13.3 % (12.0-15.0); WHITE BLOOD COUNT 10.7 x10^3/uL (4.8-10.8)
[2021-05-07 01:08] LABS: ALBUMIN 3.4 g/dL (3.2-5.5); ALBUMIN/GLOBULIN RATIO 1.3 (1.0-2.2); BILIRUBIN,TOTAL 0.7 mg/dL (0.2-1.0); CALCIUM 8.7 mg/dL (8.5-10.3); CREATININE 2.4 mg/dL (0.6-1.2)
[2021-05-07 02:02] VITALS: BP 185/61
== END 2021-05-07 02:03 | disposition home or self-care (01) ==
LOC: ED 23:47
DX: R07.9 Chest pain, unspecified (principal); I44.4 Left anterior fascicular block; I25.2 Old myocardial infarction; Z95.5 Presence of coronary angioplasty implant and graft; I10 Essential (primary) hypertension; E11.9 Type 2 diabetes mellitus without complications; Z79.4 Long term (current) use of insulin; Z79.82 Long term (current) use of aspirin
CPT/HCPCS: 36415; 80053; 83690; 84484; 85025; 93005; 99283; 99284

== ENCOUNTER 2021-07-03 08:00 | Outpatient (CLI) | payer MEDICARE, OTHER ==
[2021-07-03 13:01] LABS: BASOPHILS # (AUTO) 0.1 10^3/uL (0.0-0.1); BASOPHILS % (AUTO) 1.2 %; EOSINOPHILS # (AUTO) 0.4 10^3/uL (0.0-0.7); EOSINOPHILS % (AUTO) 3.5 %; HCT - HEMATOCRIT 45.4 % (42.0-52.0); HGB - HEMOGLOBIN 15.1 g/dL (14.0-18.0); LYMPHOCYTES # (AUTO) 1.4 10^3/uL (1.5-3.5); LYMPHOCYTES % (AUTO) 14.1 %; MEAN CORPUSCULAR HEMOGLOBIN 29.2 pg (27.0-31.0); MEAN CORPUSCULAR HGB CONC 33.3 g/dL (32.0-36.0); MEAN CORPUSCULAR VOLUME 87.6 fL (80.0-94.0); MEAN PLATELET VOLUME 11.6 fL (7.4-11.4); MONOCYTES # (AUTO) 1.1 10^3/uL (0.0-1.0); MONOCYTES % (AUTO) 10.6 %; NEUTROPHILS # (AUTO) 7.1 10^3/uL (1.5-6.6); NEUTROPHILS % (AUTO) 69.9 %; PLT - PLATELET COUNT 246 10^3/uL (130-450); RED BLOOD COUNT 5.18 10^6/uL (4.70-6.10); RED CELL DISTRIBUTION WIDTH 12.9 % (12.0-15.0); WHITE BLOOD COUNT 10.1 x10^3/uL (4.8-10.8)
[2021-07-03 13:23] LABS: ALBUMIN 3.6 g/dL (3.2-5.5); ALBUMIN/GLOBULIN RATIO 1.2 (1.0-2.2); ALKALINE PHOSPHATASE 65 IU/L (42-121); ALT ALANINE AMINOTRANSFERASE 24 IU/L (10-60); AST ASPARTATE AMINOTRANSFERASE 21 IU/L (10-42); BILIRUBIN,TOTAL 0.5 mg/dL (0.2-1.0); BUN - BLOOD UREA NITROGEN 32 mg/dL (6-20); CALCIUM 9.5 mg/dL (8.5-10.3); CARBON DIOXIDE - CO2 24 mmol/L (21-32); CHLORIDE 105 mmol/L (101-111); CHOL/HDL RATIO 4.3 (<5.0); CHOLESTEROL 133 mg/dL; GFR - MDRD 33 (>89); GLUCOSE 89 mg/dL (70-100); HDL CHOLESTEROL 31 mg/dL; LDL CHOLESTEROL,CALCULATED 74 mg/dL; LDL/HDL RATIO 2.4 (<3.6); PHOSPHORUS 4.4 mg/dL (2.5-4.6); POTASSIUM 3.8 mmol/L (3.5-5.0); SODIUM 138 mmol/L (135-145); TOTAL PROTEIN 6.7 g/dL (6.7-8.2); TRIGLYCERIDES 138 mg/dL; URIC ACID 6.7 mg/dL (2.6-7.2); VLDL CHOLESTEROL 28 mg/dL
[2021-07-03 13:58] LABS: ESTIMATED AVERAGE GLUCOSE 166 mg/dL (70-100); HEMOGLOBIN A1c% 7.4 % (4.27-6.07)
[2021-07-03 14:10] LABS: CREATININE,URINE 65.2 mg/dL; MICROALBUM/CREATININE RATIO,UR 2619.6 ug/mg (<30.0); MICROALBUMIN,URINE 170.8 mg/dL (0-300.0)
== END 2021-07-03 23:59 | disposition home or self-care (01) ==
LOC: LAB.WCP 08:00
PROVIDERS: ATTEND Physician Assistant Medical
DX: E11.22 Type 2 diabetes mellitus with diabetic chronic kidney disease (principal); N18.32 Chronic kidney disease, stage 3b; R80.9 Proteinuria, unspecified; N25.81 Secondary hyperparathyroidism of renal origin; D63.1 Anemia in chronic kidney disease
CPT/HCPCS: 36415; 80053; 80061; 80069; 82043; 82570; 83036; 83721; 83970; 84550; 85025

== ENCOUNTER 2021-07-09 16:56 | Outpatient (CLI) | payer MEDICARE, OTHER ==
[2021-07-09 18:52] LABS: CREATININE,URINE 112.7 mg/dL
== END 2021-07-09 16:57 | disposition home or self-care (01) ==
LOC: LAB 16:56
PROVIDERS: ATTEND Internal Medicine Nephrology
DX: N18.32 Chronic kidney disease, stage 3b (principal); D63.1 Anemia in chronic kidney disease; R80.9 Proteinuria, unspecified; N25.81 Secondary hyperparathyroidism of renal origin
CPT/HCPCS: 36415; 81599; 82575; 84156; 84540

== ENCOUNTER 2021-07-31 15:25 | Outpatient (CLI) | payer MEDICARE, OTHER ==
[2021-07-31 18:37] LABS: ALBUMIN 3.3 g/dL (3.2-5.5); CALCIUM 9.1 mg/dL (8.5-10.3); CREATININE 2.3 mg/dL (0.6-1.2); PHOSPHORUS 3.9 mg/dL (2.5-4.6); POTASSIUM 3.9 mmol/L (3.5-5.0)
== END 2021-07-31 15:26 | disposition home or self-care (01) ==
LOC: LAB.N 15:25
PROVIDERS: ATTEND Internal Medicine Nephrology
DX: Z48.812 Encounter for surgical aftercare following surgery on the circulatory system (principal); R80.9 Proteinuria, unspecified; N18.32 Chronic kidney disease, stage 3b
CPT/HCPCS: 36415; 80048; 80069

== ENCOUNTER 2021-10-02 16:12 | Outpatient (CLI) | payer MEDICARE, OTHER ==
[2021-10-02 18:03] LABS: CALCIUM 8.8 mg/dL (8.5-10.3); POTASSIUM 3.9 mmol/L (3.5-5.0)
[2021-10-02 20:20] LABS: ESTIMATED AVERAGE GLUCOSE 197 mg/dL (70-100); HEMOGLOBIN A1c% 8.5 % (4.27-6.07)
== END 2021-10-02 16:13 | disposition home or self-care (01) ==
LOC: LAB.N 16:12
PROVIDERS: ATTEND Physician Assistant Medical
DX: E11.9 Type 2 diabetes mellitus without complications (principal)
CPT/HCPCS: 36415; 80048; 83036

== ENCOUNTER 2021-10-08 14:18 | Outpatient (CLI) | payer MEDICARE, OTHER ==
[2021-10-08 15:20] VITALS: BP 135/88
--- NOTE | 2021-10-08 15:20 | SLEEP CARE CONSULTATION ---
Information from patient questionnaire entered by Chrissie Vargas MA. I have reviewed and concur with the information entered by Chrissie Vargas MA. This document represents the service I personally performed and the decisions made by , Dayana Paul ARNP. History of Present Illness Service Date and Time: 10/08/2021 1418 Previous diagnosis: Severe, Obstructive Sleep Apnea-Hypopnea Syndrome, Central Sleep Apnea-Hypopnea Syndrome AHI: 41.5 (in 2014) Reason for follow up: annual (LAST SEEN 09/2020,) Equipment type: CPAP Equipment obtained from: [employer] (getting supplies as needed) Mask style: Nasal (Wisp) Mask brand: Respironics Backup mask available: No (back up doesn't fit) Prior sleep studies: Yes Year and Where: 2014 - [facility]; 2004 in [place], [place]; 2007 in [place], [place] Type of Sleep Study: Polysomnography HPI additional information: MONSTER OSULLIVAN was diagnosed to have severe, AHI 41.5, obstructive/central sleep apnea-hypopnea syndrome and returned today for CPAP therapy annual follow-up. Sleep Study - Results Type of Sleep Study: Polysomnography Prior sleep studies: Yes Year and Where: 2014 - [facility]; 2004 in [place], [place]; 2007 in [place], [place] CPAP Compliance Data - Data Reviewed with Patient Average duration of nightly device use: 3 HOURS 43 MINUTES Compliance rate %: 0 Current pressure setting (cmH2O): 13-16 Humidity settin Heated hose settin Average residual AHI: 4.6 Average large leak: 8 MINUTES Compliance data discussion: He learned about the recall on his Dreamstation and stopped using his CPAP. When he tried to use it again the humidifier did not appear to be working because the water in the chamber would not go down. He started having some nasal congestion when using his device as well. Subjective Missed days of use due to: reports: mask issues (wrong mask sent to him), illness, other (MACHINE ISSUES; Recall of machine) Patient concerns: reports: nasal congestion, dry mouth, nose, throat. denies: aerophagia, mask discomfort, air blowing in eyes, mask leak noise, condensation in mask/hose, epistaxis, other Observed to snore while using device: No Current pressure setting perceived as: comfortable On therapy, patient: reports: sleeping better, awakening more refreshed, being more awake and alert during the day, more rested overall. denies: drowsiness while driving Initial [place] Sleepiness Scale score: 8 (in 2014) Current [place] Sleepiness Scale score: 15 (09/2021) Allergies and Home Medications Home medication list reviewed: Yes (see scanned list) Allergy and home medication list: Allergies Penicillins Allergy (Severe, Verified 05/07/21 00:17) Anaphylaxis Review of Systems Review of systems same as previous: Yes (HEART CATH RECOVERY, CARDIAC REHAB,) Physical Exam Vital signs obtained and entered by: Yaquelin VARGAS CMA AAGIANCARLO Blood Pressure: 135/88 (LEFT, ) Heart Rate: 69 O2 Saturation: 96 Height: 5 ft 6 in Weight: 205 lb (W/O CLOTHES) Body Mass Index: 33.0 BMI Classification: Obese Impression and Plan 1. Obstructive/Central Sleep Apnea-Hypopnea Syndrome, severe, with poor treatment compliance and good apnea control. On CPAP therapy, the patient has better sleep quality and is more rested overall. Monster had a recent heart cath and is in cardiac rehab because of a history of heart attack. He was not able to use his CPAP post procedure. He also has been very concerned about using the CPAP after learning about the recall on his Dreamstation that was last updated 2016. He did stop using it for a long time and then restarted on his own. Patient has tried to registered their device for the recall but states he had not luck in getting ahold of [employer] either on the phone or online. Patient den ies any black particles seen in machine or hoses, any unusual odors coming from device. Patient has not experienced any physical symptoms such as upper airway irritation, headache, skin or eye irritation, asthma, nausea/vomiting, difficulty breathing or chest pain. If patient is not able to sleep due to waking up choking, gasping for air or other respiratory distress that they may decide to continue using it until it is either replaced or repaired. Monster recently reordered supplies by an automated phone call but he states they sent him the wrong mask. He tried to use it but it was way too tight on his face. He states since restarting the CPAP he has been not seeing the water in the humidity chamber go down. He has also been experiencing an increase in nasal congestion and oral dryness. It appears his CPAP humidifier is malfunctioning. Since the patients current machine is almost 5 years old, we will see if we can update his device with one that is not on the recall. Patient voiced und erstanding and agreement with plan. Patient's apnea severity and rationale for treatment to reduce apnea, improve sleep quality and reduce cardiovascular and cerebrovascular events was reviewed. I also reviewed the benefit of consistent device use of CPAP for hypertension and cardiac disease. * Continue auto CPAP pressure at 13-16 cmH2O * Update device that is malfunctioning * Mask refitting for a full face mask * Notify me if snoring with mask or feeling that the pressure is too much or too little * Attempt to lose weight * Call this office if any problems using CPAP * Return for follow up one month after obtaining new device, or sooner if concerns arise Counseling Topics: Spare mask, Weight loss health impact Visit Type: In Office Time Spent with Patient (minutes): 28 Provider Statement: I spent 100% of the Face to Face Visit with the patient with greater than 50% spent counseling the patient and coordination of care.
== END 2021-10-08 14:19 | disposition home or self-care (01) ==
LOC: SC 14:18
PROVIDERS: ATTEND Nurse Practitioner Family
DX: G47.31 Primary central sleep apnea (principal); G47.33 Obstructive sleep apnea (adult) (pediatric); E66.9 Obesity, unspecified; Z68.33 Body mass index [BMI] 33.0-33.9, adult
CPT/HCPCS: 99213; G0463; 99212

== ENCOUNTER 2021-10-21 14:17 | Outpatient (CLI) | payer MEDICARE, OTHER ==
--- NOTE | 2021-10-21 16:53 | Ultrasound Report ---
PROCEDURE: Head or Neck Soft Tissue INDICATIONS: DYSPHAGIA TECHNIQUE: Real time scanning was performed of the neck region of interest, with image documentation . COMPARISON: None. FINDINGS: No soft tissue neck abnormality seen bilaterally IMPRESSION: Negative ultrasound of the neck. CT with intravenous contrast may be helpful for further assessment. Reviewed by: Mando Hoyos MD on 10/21/2021 4:52 PM PDT Approved by: Mando Hoyos MD on 10/21/2021 4:52 PM PDT Station ID: [id number]
== END 2021-10-21 14:18 | disposition home or self-care (01) ==
LOC: DI 14:17
PROVIDERS: ATTEND Physician Assistant Medical
DX: R13.10 Dysphagia, unspecified (principal); M54.2 Cervicalgia

== ENCOUNTER 2022-03-23 14:37 | Outpatient (CLI) | payer MEDICARE, OTHER ==
--- NOTE | 2022-03-23 23:55 | Ultrasound Report ---
PROCEDURE: Retroperitoneal INDICATIONS: KIDNEY DYSFUNCTION TECHNIQUE: Real-time scanning was performed of the retroperitoneal organs, with image documentation. COMPARISON: None. FINDINGS: Kidneys: Kidneys are normal in size. Right kidney measures 10.4 cm long; left kidney measures 10.7 cm long. Right renal cortical thickness is 1.34 cm; left renal cortical thickness is 1.20 cm. No so lid masses, hydronephrosis, or nephrolithiasis. Bladder: Pre-void bladder volume is 350.1 mL. Post-void residual is 245.1 mL. Pre-void images demo nstrate no intraluminal masses or stones. On pre-void images, bilateral ureteral jets are noted with color Doppler interrogation. (Of note, ureteral jets may not be detectable in up to 25% of cases du e to insufficient differences in specific gravity between ureteral and bladder urine). Enlarged pros antoine gland is seen measures 4.2 x 4.4 x 5.0 cm in size with mass effect on floor of urinary bladder. Miscellaneous: No free abdominal fluid. IMPRESSION: 1. Normal-appearing bilateral kidneys. 2. Enlarged prostate gland with mass effect on floor of urinary bladder. Large amount of postvoid res idual. No discrete bladder wall mass or wall thickening. Reviewed by: Keenan Rivera MD on 03/23/2022 11:53 PM PDT Approved by: Keenan Rivera MD on 03/23/2022 11:53 PM PDT Station ID: [id number]
== END 2022-03-23 14:38 | disposition home or self-care (01) ==
LOC: DI 14:37
PROVIDERS: ATTEND Internal Medicine Nephrology
DX: N32.0 Bladder-neck obstruction (principal); N40.0 Benign prostatic hyperplasia without lower urinary tract symptoms

== ENCOUNTER 2022-06-16 15:35 | Outpatient (CLI) | payer MEDICARE, OTHER ==
[2022-06-16 19:10] LABS: MEAN CORPUSCULAR HEMOGLOBIN 28.9 pg (27.0-31.0); MEAN PLATELET VOLUME 11.7 fL (7.4-11.4); RED CELL DISTRIBUTION WIDTH 13.7 % (12.0-15.0)
[2022-06-16 19:13] LABS: BASOPHILS # (AUTO) 0.1 10^3/uL (0.0-0.1); BASOPHILS % (AUTO) 0.9 %; EOSINOPHILS # (AUTO) 0.2 10^3/uL (0.0-0.7); HCT - HEMATOCRIT 41.2 % (42.0-52.0); HGB - HEMOGLOBIN 13.6 g/dL (14.0-18.0); LYMPHOCYTES # (AUTO) 1.1 10^3/uL (1.5-3.5); LYMPHOCYTES % (AUTO) 12.5 %; MEAN CORPUSCULAR VOLUME 87.5 fL (80.0-94.0); MONOCYTES # (AUTO) 0.8 10^3/uL (0.0-1.0); MONOCYTES % (AUTO) 9.7 %; NEUTROPHILS # (AUTO) 6.4 10^3/uL (1.5-6.6); NEUTROPHILS % (AUTO) 74.5 %; PLT - PLATELET COUNT 226 10^3/uL (130-450); RED BLOOD COUNT 4.71 10^6/uL (4.70-6.10); WHITE BLOOD COUNT 8.6 x10^3/uL (4.8-10.8)
[2022-06-16 19:26] LABS: ALBUMIN 2.8 g/dL (3.2-5.5); ALKALINE PHOSPHATASE 61 IU/L (42-121); ALT ALANINE AMINOTRANSFERASE 24 IU/L (10-60); AST ASPARTATE AMINOTRANSFERASE 30 IU/L (10-42); BILIRUBIN,TOTAL 0.7 mg/dL (0.2-1.0); BUN - BLOOD UREA NITROGEN 33 mg/dL (6-20); CALCIUM 8.2 mg/dL (8.5-10.3); CARBON DIOXIDE - CO2 25 mmol/L (21-32); CHLORIDE 105 mmol/L (101-111); CHOL/HDL RATIO 3.1 (<5.0); CHOLESTEROL 109 mg/dL; CREATININE 2.6 mg/dL (0.6-1.2); GFR - MDRD 24 (>89); GLUCOSE 182 mg/dL (70-100); HDL CHOLESTEROL 35 mg/dL; LDL CHOLESTEROL,CALCULATED 39 mg/dL; LDL/HDL RATIO 1.1 (<3.6); POTASSIUM 2.7 mmol/L (3.5-5.0); SODIUM 138 mmol/L (135-145); TOTAL PROTEIN 5.5 g/dL (6.7-8.2); TRIGLYCERIDES 176 mg/dL; VLDL CHOLESTEROL 35 mg/dL
[2022-06-16 19:38] LABS: CREATINE KINASE MB 12.8 ng/mL (0.6-6.3)
[2022-06-16 19:59] LABS: TROPONIN I HIGH SENSITIVITY 33.1 ng/L (2.3-19.7)
[2022-06-17 12:53] LABS: ESTIMATED AVERAGE GLUCOSE 151 mg/dL (70-100); HEMOGLOBIN A1c% 6.9 % (4.27-6.07)
== END 2022-06-16 15:36 | disposition home or self-care (01) ==
LOC: LAB.N 15:35
PROVIDERS: ATTEND Physician Assistant Medical
DX: I25.10 Atherosclerotic heart disease of native coronary artery without angina pectoris (principal); R06.09 Other forms of dyspnea; E11.9 Type 2 diabetes mellitus without complications
CPT/HCPCS: 36415; 80053; 80061; 82553; 83036; 83721; 83880; 84484; 85025; 85379

== ENCOUNTER 2022-06-16 15:43 | Outpatient (CLI) | payer MEDICARE, OTHER ==
--- NOTE | 2022-06-25 07:51 | XRAY Report ---
PROCEDURE: Chest 2 View X-Ray INDICATIONS: DSYPNEA ON EXERTION TECHNIQUE: 2 views of the chest were acquired. COMPARISON: Prior chest radiograph dated 05/06/2021 FINDINGS: Surgical changes and devices: None. Lungs and pleura: No pleural effusions or pneumothorax. Lungs are clear. Mediastinum: Mediastinal contours are normal. Heart size is normal. Bones and chest wall: No suspicious bony abnormalities. Soft tissues appear unremarkable. IMPRESSION: No acute cardiopulmonary disease. Reviewed by: SHAINA Bullock on 06/25/2022 7:50 AM PST Approved by: Silvia Hua MD on 06/25/2022 7:50 AM PST Station ID: [id number]
== END 2022-06-16 15:44 | disposition home or self-care (01) ==
LOC: DI.N 15:43
PROVIDERS: ATTEND Physician Assistant Medical
DX: R06.09 Other forms of dyspnea (principal); I25.10 Atherosclerotic heart disease of native coronary artery without angina pectoris; E11.9 Type 2 diabetes mellitus without complications
CPT/HCPCS: 36415; 80053; 80061; 82553; 83036; 83721; 83880; 84484; 85025; 85379

== ENCOUNTER 2022-06-17 12:02 | Outpatient (CLI) | payer MEDICARE, OTHER ==
[2022-06-17 18:15] LABS: CREATINE KINASE MB 11.9 ng/mL (0.6-6.3)
[2022-06-17 18:44] LABS: TROPONIN I HIGH SENSITIVITY 40.3 ng/L (2.3-19.7)
== END 2022-06-17 12:03 | disposition home or self-care (01) ==
LOC: LAB.N 12:02
PROVIDERS: ATTEND Physician Assistant
DX: R06.09 Other forms of dyspnea (principal)
CPT/HCPCS: 36415; 82553; 84484

== ENCOUNTER 2022-10-08 08:55 | Outpatient (CLI) | payer MEDICARE, OTHER ==
--- NOTE | 2022-10-08 09:50 | SLEEP CARE CONSULTATION ---
Information from patient questionnaire entered by Henna Ruiz. I have reviewed and concur with the information entered by Henna Ruiz. This document represents the service I personally performed and the decisions made by me, Dayana Paul ARNP. History of Present Illness Service Date and Time: 10/08/2022 0855 Previous diagnosis: Severe, Obstructive Sleep Apnea-Hypopnea Syndrome, Central Sleep Apnea-Hypopnea Syndrome AHI: 41.5 (in 2014) Reason for follow up: annual (LAST SEEN 09/2021) Equipment type: CPAP ([employer] Dreamstation; SD CARD NEEDED FOR DOWNLOAD AND PRESSURE CHANGES) Equipment obtained from: [employer] (getting supplies as needed) Mask style: Full face Backup mask available: No (will keep old mask when replaced) Prior sleep studies: Yes Year and Where: 2014 - [facility]; 2004 in [place], [place]; 2007 in [place], [place] Type of Sleep Study: Polysomnography HPI additional information: MONSTER OSULLIVAN was diagnosed to have severe, AHI 41.5, obstructive sleep apnea- hypopnea syndrome and returned today for CPAP therapy annual follow-up. Sleep Study - Results Type of Sleep Study: Polysomnography Prior sleep studies: Yes Year and Where: 2014 - [facility]; 2004 in [place], [place]; 2007 in [place], [place] CPAP Compliance Data - Data Reviewed with Patient Average duration of nightly device use: 2 hours 31 minutes Compliance rate %: 13.3 (99/180 days used) Current pressure setting (cmH2O): 13-16 Average residual AHI: 7.5 Central apnea: 0 Obstructive apnea: 0.2 Hypopnea: 7.4 Average large leak: 2 hours 8 minutes Subjective Missed days of use due to: reports: mask issues (mask leaks), other (cannot breathe thru nose due to congestion) Patient concerns: reports: mask leak noise, nasal congestion. denies: aerophagia, mask discomfort, air blowing in eyes, condensation in mask/hose, dry mouth, nose, throat, epistaxis Initial [place] Sleepiness Scale score: 8 (in 2014) Current [place] Sleepiness Scale score: 1 (10/08/22) Allergies and Home Medications Known drug allergies: Yes (penicillin) Drug allergies reviewed: Yes Home medication list reviewed: Yes (no changes) Allergy and home medication list: Allergies Penicillins Allergy (Severe, Verified 10/07/22 14:24) Anaphylaxis Review of Systems Review of systems same as previous: Yes (no changes) Physical Exam Vital signs obtained and entered by: HENNA Turcios MA Blood Pressure: 122/62 (LEFT ARM) Cuff size: regular Heart Rate: 60 O2 Saturation: 97 Height: 5 ft 6 in Weight: 187 lb Weight change since last visit: 12 lb loss (has lost 30 lbs since May) Body Mass Index: 30.2 BMI Classification: Obese Impression and Plan 1. Obstructive Sleep Apnea-Hypopnea Syndrome, severe, with poor treatment compliance and fair apnea control with elevated residual AHI (hypopnea index 7.3). On CPAP therapy, the patient has better sleep quality and is more rested overall. He has an average large leak of 2 + hours. I think a mask change will help to reduce AHI. I fitted patient to a small cushion Dreamwear nasal pillow gel mask by [employer]ics. He felt it was comfortable and will try this mask. I will add to his updated prescription for [employer]. Patient's apnea severity and rationale for treatment to reduce apnea, improve sleep quality and reduce cardiovascular and cerebrovascular events was reviewed. I also reviewed the benefit of consistent device use of CPAP for hypertension and cardiac disease. He is due to for a replacement device but he declined updating at this time. He is aware the device is on recall and has not yet been replaced. He states there are no indications of the black debris at this time and he is comfortable using the Dreamstation. 2. Obesity, unspecified. Currently patients BMI is 30.2. Patient has been losing weight. Obesity increases the risk of apnea, CPAP pressure requirements and overall health risks especially cardiovascular and diabetes. Thus patient is advised to continue to try to lose weight. The patient's CPAP pressure range should accommodate some weight loss. * Continue auto CPAP pressure at 13-16 cmH2O * Patient fitted to nasal pillows mask, Dreamwear gel cushion * Update supplies * Notify me if snoring with mask or feeling that the pressure is too much or too little * Attempt to lose weight * Call this office if any problems using CPAP * Return for follow up in 1 year, or sooner if concerns arise Counseling Topics: Spare mask, Weight loss health impact Visit Type: In Office Time Spent with Patient (minutes): 29 Provider Statement: I spent 100% of the Face to Face Visit with the patient with greater than 50% spent counseling the patient and coordination of care.
[2022-10-08 09:52] VITALS: BP 122/62
== END 2022-10-08 08:56 | disposition home or self-care (01) ==
LOC: SC 08:55
PROVIDERS: ATTEND Nurse Practitioner Family
DX: G47.33 Obstructive sleep apnea (adult) (pediatric) (principal); E66.9 Obesity, unspecified; Z68.30 Body mass index [BMI] 30.0-30.9, adult
CPT/HCPCS: 99213; G0463; 99212

== ENCOUNTER 2022-11-29 13:47 | Outpatient (CLI) | payer MEDICARE, OTHER ==
--- NOTE | 2022-11-29 19:21 | Ultrasound Report ---
PROCEDURE: Retroperitoneal INDICATIONS: MELISSA TECHNIQUE: Real-time scanning was performed of the retroperitoneal organs, with image documentation. COMPARISON: Renal ultrasound dated 03/23/2022. CT chest 10/16/2015. FINDINGS: Kidneys: Right kidney measures 9.6 cm long; left kidney measures 10.4 cm long. Right renal cortical thickness is 0.4 cm; left renal cortical thickness is 0.4 cm. Increased in echogenicity. A few echo genic foci. No solid masses or hydronephrosis. Bladder: Pre-void bladder volume is 288 mL. Post-void residual is 216 mL. Pre-void images demonstr ate no intraluminal masses or stones. On pre-void images, both ureteral jets are noted with color Do ppler interrogation. (Of note, ureteral jets may not be detectable in up to 25% of cases due to insu fficient differences in specific gravity between ureteral and bladder urine). Miscellaneous: No free abdominal fluid. Prostate gland measures 4.6 x 4.5 x 4 cm IMPRESSION: 1. Increased echogenicity of the kidneys and renal cortical thinning consistent with medical renal di sease. 2. No hydronephrosis. Possible punctate kidney stones. 3. Postvoid residual 216 cc. Prominent prostate gland. Reviewed by: Richard Banks MD on 11/29/2022 7:19 PM PDT Approved by: Richard Banks MD on 11/29/2022 7:19 PM PDT Station ID: [id number]
== END 2022-11-29 13:48 | disposition home or self-care (01) ==
LOC: DI 13:47
PROVIDERS: ATTEND Internal Medicine Nephrology
DX: N17.9 Acute kidney failure, unspecified (principal); N13.9 Obstructive and reflux uropathy, unspecified; N40.0 Benign prostatic hyperplasia without lower urinary tract symptoms